=== PATIENT | male | born 1940 | race Caucasian/White ===

== ENCOUNTER → 2018-02-11 11:22 | Outpatient (CLI) | payer MEDICARE, OTHER, SELFPAY ==
[2018-02-11 13:53] LABS: Hematocrit 37.5 % (40-54); Mean Corpuscular Hgb 28.3 pg (27.0-32.0); Mean Corpuscular Volume 88.4 fL (80-94); Mean Platelet Vol. 11.9 fl (6.2-12.0); Platelet Count 166 K/mm3 (150-450); RBC Distribution Width CV 14.1 % (11.6-14.6); RBC Distribution Width SD 45.3 fl (35.1-43.9); Red Blood Count 4.24 M/mm3 (4.6-6.2); White Blood Count 4.9 K/mm3 (4.4-11.0)
[2018-02-11 13:57] LABS: Scan Indicated on CBC? Y/N NO
[2018-02-11 14:16] LABS: AST(SGOT) 25 U/L (15-37); Alanine Aminotransfer ALT/SGPT 27 U/L (16-61); Albumin, Serum 3.4 g/dL (3.2-5.0); Alkaline Phosphatase 89 U/L (45-117); Anion Gap 6 (5-15); BUN 18 mg/dL (7-18); BUN/Creat Ratio 20.3 RATIO (10-20); Calcium,Total 8.9 mg/dL (8.5-10.1); Chloride 104 mmol/L (98-107); Cholesterol 164 mg/dL (200); Creatinine, Serum 0.89 mg/dL (0.70-1.30); EST Glomerular Filtration Rate 89 mL/min (>60); Est Glom Filt Rate - Afr Amer 108 mL/min (>60); Globulin 3.4 g/dL (2.2-4.2); Glucose 94 mg/dL (74-106); High Density Lipoprotein 38 mg/dL; Potassium 4.1 mmol/L (3.5-5.1); Protein, Total 6.8 g/dL (6.4-8.2); Sodium Level 140 mmol/L (136-145); Thyroid Stim Hormone (TSH) 0.36 uIU/mL (0.358-3.74); Triglycerides 99 mg/dL; Very Low Density Lipoprotein 20 mg/dL (5-40)
[2018-02-12 08:43] LABS: Vitamin B12 198 pg/mL (211-911); Vitamin D,25 Hydroxy 32.5 ng/mL (29.95-100.01)
== END ==
PROVIDERS: Family Provider Family Medicine; PCP Family Medicine; Visit Provider Family Medicine
DX: R53.83 Other fatigue (principal); I10 Essential (primary) hypertension; Z12.5 Encounter for screening for malignant neoplasm of prostate
CPT/HCPCS: 36415; 80053; 80061; 82306; 82607; 84443; 85027

== ENCOUNTER → 2018-05-14 11:12 | Outpatient (CLI) | payer MEDICARE, OTHER, SELFPAY ==
[2018-05-14 14:24] LABS: Anion Gap 8 (5-15); BUN 23 mg/dL (7-18); BUN/Creat Ratio 20.4 RATIO (10-20); Calcium,Total 9.1 mg/dL (8.5-10.1); Chloride 104 mmol/L (98-107); Creatinine, Serum 1.13 mg/dL (0.70-1.30); EST Glomerular Filtration Rate 67 mL/min (>60); Est Glom Filt Rate - Afr Amer 81 mL/min (>60); Glucose 95 mg/dL (74-106); Iron 81 ug/dL (65-175); Potassium 4.3 mmol/L (3.5-5.1); Sodium Level 144 mmol/L (136-145)
[2018-05-14 14:33] LABS: Vitamin B12 1037 pg/mL (211-911)
== END ==
PROVIDERS: Family Provider Family Medicine; PCP Family Medicine; Visit Provider Family Medicine
DX: I10 Essential (primary) hypertension (principal); R53.83 Other fatigue; E53.8 Deficiency of other specified B group vitamins; R79.9 Abnormal finding of blood chemistry, unspecified
CPT/HCPCS: 36415; 80048; 82607; 83540

== ENCOUNTER → 2018-08-12 12:17 | Outpatient (CLI) | payer MEDICARE, OTHER, SELFPAY ==
[2018-08-12 14:26] LABS: ALB/GLOB Ratio 0.9 RATIO (0.9-2.4); AST(SGOT) 22 U/L (15-37); Alanine Aminotransfer ALT/SGPT 28 U/L (16-61); Albumin, Serum 3.5 g/dL (3.2-5.0); Alkaline Phosphatase 89 U/L (45-117); Anion Gap 4 (5-15); BUN 13 mg/dL (7-18); BUN/Creat Ratio 12.7 RATIO (10-20); Calcium,Total 8.8 mg/dL (8.5-10.1); Chloride 102 mmol/L (98-107); Creatinine, Serum 1.02 mg/dL (0.70-1.30); EST Glomerular Filtration Rate 76 mL/min (>60); Est Glom Filt Rate - Afr Amer 91 mL/min (>60); Globulin 3.9 g/dL (2.2-4.2); Glucose 84 mg/dL (74-106); PSA,Total - Annual Screen 4.52 ng/mL (0.00-4.00); Potassium 4.3 mmol/L (3.5-5.1); Protein, Total 7.4 g/dL (6.4-8.2); Sodium Level 138 mmol/L (136-145)
[2018-08-13 11:31] LABS: Vitamin B12 > 2000 pg/mL (211-911); Vitamin D,25 Hydroxy 32.5 ng/mL (29.95-100.01)
== END ==
PROVIDERS: Family Provider Family Medicine; PCP Family Medicine; Visit Provider Family Medicine
DX: I10 Essential (primary) hypertension (principal); E55.9 Vitamin D deficiency, unspecified; E53.8 Deficiency of other specified B group vitamins; Z12.5 Encounter for screening for malignant neoplasm of prostate
CPT/HCPCS: 36415; 80053; 82306; 82607; 84153; G0103

== ENCOUNTER → 2018-09-09 15:54 | Outpatient (CLI) | payer MEDICARE, OTHER, SELFPAY ==
--- NOTE | 2018-09-09 15:59 | RAD_ITS ---
STUDY: X-RAY - LUMBAR SPINE REASON FOR EXAM: Male, 77 years old. Neurogenic claudication. TECHNIQUE: 5 view(s) of the lumbar spine were obtained. COMPARISON: Prior comparable comparison studies are not available for review at this time. FINDINGS: Normal lumbar lordosis. There is no substantial scoliosis. There is a normal alignment of the vertebrae. There is multilevel endplate spondylosis of the lumbar vertebrae. There is multi-level degenerative disc disease with multi-level disc space narrowing. There is no demonstrated fracture. There is moderately severe degenerative arthropathy of the facet joints of the lumbar spine. There is atherosclerotic calcification of the abdominal aorta without a demonstrated aneurysm. Multiple pelvic calcifications are probably phleboliths. RAD/L/S Spine Min 4 Views IMPRESSION: Moderately severe multilevel spondylosis, degenerative disc disease and degenerative arthropathy of the lumbar spine. Electronically Signed: Alaina Andrade MD at 23:55 EST , Service support ,
--- NOTE | 2018-09-09 15:59 | RAD_ITS ---
STUDY: X-RAY CHEST REASON FOR EXAM: Male, 77 years old. Dyspnea on effort TECHNIQUE: PA and lateral views of the chest. COMPARISON: 11/06/2017. 02/15/2017 FINDINGS: Stable mild hyperinflation, interstitial prominence, small nodular density posterior left sixth rib There is no demonstrated pleural abnormality. Normal size heart. Normal mediastinum and mary lou. Normal visualized pulmonary arteries. There is atherosclerotic calcification of the aortic arch with tortuosity. There are diffuse degenerative changes of the visualized thoracic spine. There is degenerative osteoarthritis of the bilateral shoulders. There is no demonstrated abnormality of the visualized soft tissue structures of the upper abdomen. RAD/Chest PA and Lateral IMPRESSION: Stable chronic-appearing interstitial lung disease with areas of hyperinflation, small nodular density possible calcification of the posterior sixth rib since 02/15/2017. No pulmonary edema, congestive heart failure or confluent pneumonia. Other nonacute findings as outlined above. Electronically Signed: Unique Frias MD at 7:07 EST , Service support ,
[2018-09-09 17:52] LABS: Hematocrit 39.1 % (40-54); Hemoglobin 12.6 g/dl (13.0-16.5); Mean Corp Hgb Conc 32.2 g/gl (32-36); Mean Corpuscular Hgb 28.3 pg (27.0-32.0); Mean Corpuscular Volume 87.9 fL (80-94); Mean Platelet Vol. 11.6 fl (6.2-12.0); Platelet Count 193 K/mm3 (150-450); RBC Distribution Width SD 44.5 fl (35.1-43.9); Red Blood Count 4.45 M/mm3 (4.6-6.2); White Blood Count 7.7 K/mm3 (4.4-11.0)
[2018-09-09 18:00] LABS: Scan Indicated on CBC? Y/N NO
[2018-09-09 18:23] LABS: AST(SGOT) 21 U/L (15-37); Alanine Aminotransfer ALT/SGPT 29 U/L (16-61); Albumin, Serum 3.6 g/dL (3.2-5.0); Alkaline Phosphatase 85 U/L (45-117); Anion Gap 6 (5-15); BUN 19 mg/dL (7-18); BUN/Creat Ratio 18.3 RATIO (10-20); Calcium,Total 8.9 mg/dL (8.5-10.1); Chloride 105 mmol/L (98-107); Creatinine, Serum 1.04 mg/dL (0.70-1.30); EST Glomerular Filtration Rate 74 mL/min (>60); Est Glom Filt Rate - Afr Amer 89 mL/min (>60); Globulin 3.7 g/dL (2.2-4.2); Glucose 88 mg/dL (74-106); Iron 69 ug/dL (65-175); Potassium 3.8 mmol/L (3.5-5.1); Protein, Total 7.3 g/dL (6.4-8.2); Sodium Level 139 mmol/L (136-145); Thyroid Stim Hormone (TSH) 0.63 uIU/mL (0.358-3.74)
[2018-09-09 18:24] LABS: BNP,B-Type NATRIURETIC PEPTIDE 21.2 pg/mL (0-100)
--- OUTSIDE RECORDS SUMMARY | 2018-11-05 08:54 | XMS RPT_ITS ---
:1940 Author Organization OHIP Care Team Providers Name Role Phone Carlos Pruitt Attending Unavailable Edmond, Carlos Primary Care Unavailable Carlos Pruitt Attending Unavailable Edmond, Christopher Primary Care Unavailable Carlos Pruitt Attending Unavailable Edmond, Christopher Primary Care Unavailable Carlos Pruitt Attending Unavailable Edmond, Christopher Primary Care Unavailable Carlos Pruitt Attending Unavailable Carlos Pruitt Referring Unavailable Edmond, Christopher Primary Care Unavailable Carlos Pruitt Attending Unavailable Carlos Pruitt Referring Unavailable Ranney, Christopher Primary Care Unavailable ALESSIO ARDON Attending Unavailable ALESSIO ARDON Referring Unavailable ALESSIO ARDON Referring Unavailable ALESSIO ARDON Attending Unavailable ALESSIO ARDON Referring Unavailable CARLOS PRUITT B Primary Care Unavailable ALESSIO ARDON Attending Unavailable ALESSIO ARDON Referring Unavailable RANNEY, CHRISTOPHER B Primary Care Unavailable ALESSIO ARDON Attending Unavailable CARLOS PRUITT Referring Unavailable PROBLEMS PROBLEMS DATE TYPE CONDITION / CODE ATTENDING STATUS SOURCE 09/09/2018 Unknown 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, 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, [facility] unspecified / Hospital I73.9(ICD-10) Repository 09/09/2018 Unknown R06.09 - Other Ranney, Active [place] forms of dyspnea / [facility] R06.09(ICD-10) Hospital Repository 09/09/2018 Unknown 786.09 - Other Ranney, Active [place] respiratory [facility] abnormalities / Hospital 786.09(ICD-9) Repository 09/09/2018 Unknown 443.9 - Peripheral Ranney, Active [place] vascular disease, [facility] unspecified / Hospital 443.9(ICD-9) Repository 11/06/2017 Active Obstructive sleep ALESSIO ARDON Active [place] apnea (adult) [facility] Other (pediatric) / [place] G47.33(ICD-10) Repository 11/06/2017 Active Essential (primary) ALESSIO ARDON Active [place] hypertension / [facility] Other I10(ICD-10) [place] Repository 11/06/2017 Admitting Unknown / ALESSIO ARDON Active [facility] UNK(Unknown) [facility] Repository 11/06/2017 Unknown I10 - Essential Ranney, Active [place] (primary) [facility] hypertension / Hospital I10(ICD-10) Repository 11/06/2017 Unknown 401.9 - Unspecified Ranney, Active [place] essential [facility] hypertension / Hospital 401.9(ICD-9) Repository 11/06/2017 Unknown E03.9 - Ranney, Active [place] Hypothyroidism, [facility] unspecified / Hospital E03.9(ICD-10) Repository 11/06/2017 Unknown 244.9 - Unspecified Ranney, Active [place] acquired [facility] hypothyroidism / Hospital 244.9(ICD-9) Repository 11/06/2017 Unknown R06.2 - Wheezing / Ranney, Active [place] R06.2(ICD-10) [facility] Hospital Repository PROCEDURES PROCEDURES No Procedure Records FoundRESULTS RESULTS LOWER EXT ARTERIAL Observed: 09/30/2018 Status: F Source: ADA STUDY 8:22 PM [facility] REPOSITORY [facility] Cardiovascular [address] [address] 09/30/182010 MR#: [id number] Acct: [id number] Name: NED ARMSTRONG Rep #: [id number] : 1940 77 From: Edgar Dykes MD Attending Dr: Carlos Pruitt MD Status: REG CLI Ordering Dr: Date: 09/30/18 Location: [facility] Sex: M C Admitted: Arterial Study - Arterial Study Arterial Study: This is a 77-year-old male with a history of hypertension and hyperlipidemia. The patient complains of fatigue in his lower extremities with ambulation, suspicious for intermittent claudication. He is brought to the noninvasive vascular laboratory at this time for the purpose of bilateral non-invasive lower extremity arterial assessment. Doppler signal assessment was used to evaluate the pulses at ankle level bilaterally. The posterior tibial and dorsalis pedis pulses were triphasic bilaterally. Segmental limb pressures were obtained at ankle level bilaterally. The right ankle pressure, as determined by posterior tibial pulse, was measured at 157 mmHg. The right ankle pressure, as determined by dorsalis pedis pulse, was measured at 147 mmHg. The left ankle pressure, as determined by posterior tibial pulse, was measured at 177 mmHg. The left ankle pressure, as determined by dorsalis pedis pulse, was measured at 156 mmHg. Pulse volume recordings were obtained bilaterally and segmentally. Waveform amplitudes appeared to be satisfactory at all levels bilaterally, including low thigh, calf, ankle, and digital levels. Resting ankle brachial indices were calculated bilaterally. The resting right ankle brachial index was calculated to be 1.13. The resting left ankle brachial index was calculated to be 1.27. The patient was then exercised on a treadmill for 2 minutes and 30 seconds. Exercise was was performed at an incline of 5% and a speed of 2 mph. Ankle pressures were obtained at intervals following cessation of exercise. The right ankle pressure 1 minute following cessation of exercise was measured at 232 mmHg. The left ankle pressure 1 minute following cessation of exercise was measured at 240 mmHg. 3 minutes following cessation of exercise, the right ankle pressure was measured at 193 mmHg, and the left ankle pressure was measured at 206 mmHg. 5 minutes following cessation of exercise, the right ankle pressure was measured at 187 mmHg, and the left ankle pressure was measured at 187 mmHg. Impression: Based upon the findings of this resting and exercise noninvasive lower extremity arterial study, there is no evidence of significant atherosclerotic peripheral arterial occlusive disease in the lower extremities bilaterally. Triphasic waveforms were noted at ankle level bilaterally. Resting ankle brachial indices were bilaterally normal. Following exercise, it is noted that ankle pressures augment bilaterally, which is a normal physiological response. In summary, there is no evidence of significant arterial occlusive disease in the lower extremities bilaterally. 09/30/182021 <Electronically signed by Edgar Dykes MD> Date Edgar Dykes MD CC: Carlos Pruitt MD Date Dictated: 09/30/182010 Date Transcribed: 09/30/182010 Agriculture Instructor: FAIZA Jaimes BNP,B-TYPE NATRIURETIC Collected: 09/09/2018 Status: F Source: ADA PEPTIDE 4:00 PM [facility] REPOSITORY TYPE CODE TESTS RESULT OUT OF RANGE REFERENCE UNITS LAB L503.6620 0-100 pg/mL Normal B-TYPE 21.2 CHRISTIE PEP Performed By: #### L503.6620 #### [facility] [address] [place], [address] CHEST PA AND LATERAL Observed: 09/09/2018 Status: F Source: MARY 3:59 PM [facility] REPOSITORY [facility] Imaging Services [address] [place] [address] Chest PA and Lateral MR#: [id number] Acct: [id number] Name: NED ARMSTRONG Nani Rep #: [id number] : 1940 77 From: Unique Frias MD PCP: Carlos Pruitt MD Status: REG CLI Study: Chest PA and Lateral Date of Exam: 09/09/18 Exam# [id number] Ordering Dr: Alex Pruitt MD STUDY: X-RAY CHEST REASON FOR EXAM: Male, 77 years old. Dyspnea on effort TECHNIQUE: PA and lateral views of the chest. COMPARISON: 11/06/2017. 02/15/2017 FINDINGS: Stable mild hyperinflation, interstitial prominence, small nodular density posterior left sixth rib There is no demonstrated pleural abnormality. Normal size heart. Normal mediastinum and mary lou. Normal visualized pulmonary arteries. There is atherosclerotic calcification of the aortic arch with tortuosity. There are diffuse degenerative changes of the visualized thoracic spine. There is degenerative osteoarthritis of the bilateral shoulders. There is no demonstrated abnormality of the visualized soft tissue structures of the upper abdomen. RAD/Chest PA and Lateral IMPRESSION: Stable chronic-appearing interstitial lung disease with areas of hyperinflation, small nodular density possible calcification of the posterior sixth rib since 02/15/2017. No pulmonary edema, congestive heart failure or confluent pneumonia. Other nonacute findings as outlined above. Electronically Signed: Unique Frias MD at 7:07 EST , Service support , CC: Carlos Pruitt MD Agriculture Instructor: Signed L/S SPINE MIN 4 Observed: 09/09/2018 Status: F Source: ADA VIEWS 3:59 PM [facility] REPOSITORY [facility] Imaging Services [address] [place] [address] L/S Spine Min 4 Views MR#: [id number] Acct: [id number] Name: NED ARMSTRONG Rep #: [id number] : 1940 M 77 From: Alaina Andrade MD PCP: Carlos Pruitt MD Status: REG CLI Study: L/S Spine Min 4 Views Date of Exam: 09/09/18 Exam# [id number] Ordering Dr: Alex Pruitt MD STUDY: X-RAY - LUMBAR SPINE REASON FOR EXAM: Male, 77 years old. Neurogenic claudication. TECHNIQUE: 5 view(s) of the lumbar spine were obtained. COMPARISON: Prior comparable comparison studies are not available for review at this time. FINDINGS: Normal lumbar lordosis. There is no substantial scoliosis. There is a normal alignment of the vertebrae. There is multilevel endplate spondylosis of the lumbar vertebrae. There is multi-level degenerative disc disease with multi-level disc space narrowing. There is no demonstrated fracture. There is moderately severe degenerative arthropathy of the facet joints of the lumbar spine. There is atherosclerotic calcification of the abdominal aorta without a demonstrated aneurysm. Multiple pelvic calcifications are probably phleboliths. RAD/L/S Spine Min 4 Views IMPRESSION: Moderately severe multilevel spondylosis, degenerative disc disease and degenerative arthropathy of the lumbar spine. Electronically Signed: Alaina Andrade MD at 23:55 EST , Service support , CC: Carlos Pruitt MD Agriculture Instructor: Signed CBC-COMPLETE BLOOD CNT Collected: 09/09/2018 Status: F Source: ADA NO DIFF 3:58 PM [facility] REPOSITORY TYPE CODE TESTS RESULT OUT OF RANGE REFERENCE UNITS LAB L100.1000 4.4-11.0 K/mm3 Normal WBC 7.7 LAB L100.1200 4.6-6.2 M/mm3 Low RBC 4.45 LAB L100.1300 13.0-16.5 g/dl Low HGB 12.6 LAB L100.1400 40-54 % Low HCT 39.1 LAB L100.1500 80-94 fL Normal MCV 87.9 LAB L100.1600 27.0-32.0 pg Normal MCH 28.3 LAB L100.1700 32-36 g/gl Normal MCHC 32.2 LAB L100.1810 11.6-14.6 % Normal RDW CV 14.0 LAB L100.1820 35.1-43.9 fl High RDW SD 44.5 LAB L100.1900 150-450 K/mm3 Normal PLT 193 LAB L100.2000 6.2-12.0 fl Normal MPV 11.6 Performed By: #### L100.0500, L500.4050, L501.9520, L503.6150 #### [facility] [address] [place], [address] COMPREHENSIVE METABOLIC Collected: 09/09/2018 Status: F Source: MARY MISTRY 3:58 PM [facility] REPOSITORY TYPE CODE TESTS RESULT OUT OF RANGE REFERENCE UNITS LAB L501.0100 74-106 mg/dL Normal GLU 88 Result Comment: Please note revised GLUCOSE reference range effective 2017. LAB L501.1000 7-18 mg/dL High BUN 19 LAB L501.1100 0.70-1.30 mg/dL Normal CREAT,SERUM 1.04 Result Comment: The validity of the calculated GFR AND GFRAA in patients over 70 years has not been determined. Clinical correlation is essential. LAB L501.1110 >60 mL/min Normal EST GFR 74 Result Comment: Non- GFR Calc LAB L501.1115 >60 mL/min Normal EST GFR - AA 89 Result Comment: GFR Calc LAB L501.1300 10-20 RATIO Normal BUN/CRE 18.3 LAB L501.1500 6.4-8.2 g/dL T Normal PROT 7.3 LAB L501.1800 3.2-5.0 g/dL Normal ALB 3.6 LAB L501.1950 2.2-4.2 g/dL Normal GLOB 3.7 LAB L501.2000 0.9-2.4 RATIO Normal A/G 1.0 LAB L501.2200 8.5-10.1 mg/dL CA Normal 8.9 LAB L501.4100 15-37 U/L Normal AST 21 LAB L501.4305 45-117 U/L Normal ALK P 85 LAB L501.4405 16-61 U/L Normal ALT 29 LAB L501.4600 0.20-1.00 mg/dL T Normal BILI 0.60 LAB L501.5300 136-145 mmol/L NA Normal 139 LAB L501.5600 3.5-5.1 mmol/L K Normal 3.8 LAB L501.5900 98-107 mmol/L CL Normal 105 LAB L501.6100 21.0-32.0 mmol/L Normal CO2 28.0 LAB L501.6200 5-15 Normal GAP 6 Performed By: #### L100.0500, L500.4050, L501.9520, L503.6150 #### [facility] [address] [place], [address] THYROID STIM HORMONE Collected: 09/09/2018 Status: F Source: MARY (TSH) 3:58 PM [facility] REPOSITORY TYPE CODE TESTS RESULT OUT OF RANGE REFERENCE UNITS LAB L501.9520 0.358-3.74 uIU/mL Normal TSH 0.63 Performed By: #### L100.0500, L500.4050, L501.9520, L503.6150 #### [facility] [address] [place], [address] IRON Collected: 09/09/2018 Status: F Source: MARY 3:58 PM [facility] REPOSITORY TYPE CODE TESTS RESULT OUT OF RANGE REFERENCE UNITS LAB L503.6150 65-175 ug/dL Normal IRON 69 Performed By: #### L100.0500, L500.4050, L501.9520, L503.6150 #### [facility] [address] [place], [address] COMPREHENSIVE METABOLIC Collected: 08/12/2018 Status: F Source: MARY PROFIL 12:18 PM [facility] REPOSITORY TYPE CODE TESTS RESULT OUT OF RANGE REFERENCE UNITS LAB L501.0100 74-106 mg/dL Normal GLU 84 Result Comment: Please note revised GLUCOSE reference range effective 2017. LAB L501.1000 7-18 mg/dL Normal BUN 13 LAB L501.1100 0.70-1.30 mg/dL Normal CREAT,SERUM 1.02 Result Comment: The validity of the calculated GFR AND GFRAA in patients over 70 years has not been determined. Clinical correlation is essential. LAB L501.1110 >60 mL/min Normal EST GFR 76 Result Comment: Non- GFR Calc LAB L501.1115 >60 mL/min Normal EST GFR - AA 91 Result Comment: GFR Calc LAB L501.1300 10-20 RATIO Normal BUN/CRE 12.7 LAB L501.1500 6.4-8.2 g/dL T Normal PROT 7.4 LAB L501.1800 3.2-5.0 g/dL Normal ALB 3.5 LAB L501.1950 2.2-4.2 g/dL Normal GLOB 3.9 LAB L501.2000 0.9-2.4 RATIO Normal A/G 0.9 LAB L501.2200 8.5-10.1 mg/dL CA Normal 8.8 LAB L501.4100 15-37 U/L Normal AST 22 LAB L501.4305 45-117 U/L Normal ALK P 89 LAB L501.4405 16-61 U/L Normal ALT 28 LAB L501.4600 0.20-1.00 mg/dL T Normal BILI 0.40 LAB L501.5300 136-145 mmol/L NA Normal 138 LAB L501.5600 3.5-5.1 mmol/L K Normal 4.3 LAB L501.5900 98-107 mmol/L CL Normal 102 LAB L501.6100 21.0-32.0 mmol/L Normal CO2 32.0 LAB L501.6200 5-15 Low GAP 4 Performed By: #### L500.4050, L501.9910, L503.0105, L506.1000 #### [facility] [address] [place], [place], [address] PSA,TOTAL - ANNUAL Collected: 08/12/2018 Status: F Source: ADA SCREEN 12:18 PM [facility] REPOSITORY TYPE CODE TESTS RESULT OUT OF REFERENCE UNITS RANGE LAB L501.9910 0.00-4.00 ng/mL High PSA,TOT 4.52 SCREEN Result Comment: This test was performed using the TPSA assay method for the [employer] chemistry system. Values obtained with different assay methods cannot be used interchangably. When changing PSA assays in the course of monitoring a patient, additional sequential testing should be carried out to confirm baseline values. Performed By: #### L500.4050, L501.9910, L503.0105, L506.1000 #### [facility] [address] [place], [address] VITAMIN B12 Collected: 08/12/2018 Status: F Source: MARY 12:18 PM [facility] REPOSITORY TYPE CODE TESTS RESULT OUT OF REFERENCE UNITS RANGE LAB L503.0105 211-911 pg/mL High Vitamin B12 > 2000 Performed By: #### L500.4050, L501.9910, L503.0105, L506.1000 #### [facility] [address] [place], [address] VITAMIN D,25 HYDROXY Collected: 08/12/2018 Status: F Source: MARY 12:18 PM [facility] REPOSITORY TYPE CODE TESTS RESULT OUT OF RANGE REFERENCE UNITS LAB L506.1000 29.95-100.01 ng/mL Normal Vitamin D 32.5 25-OH Result Comment: Vitamin D 25(OH) Status Range Deficiency <20 ng/mL (50nmol/L) Insuffciency 20 - 30 ng/mL (50 - 75 nmol/L) Sufficiency 30 - 100 ng/mL (75 - 250 nmol/L) Toxicity >100 ng/mL (>250 nmol/L) Performed By: #### L500.4050, L501.9910, L503.0105, L506.1000 #### [facility] [address] [place], [address] BASIC METABOLIC Collected: 05/14/2018 Status: F Source: MARY PROFILE (BMP) 11:14 AM [facility] REPOSITORY Order Comment: Order Date: 05/14/18 Order Info: 0667-1 - BMP Order Info: 2498-4 - FE TYPE CODE TESTS RESULT OUT OF RANGE REFERENCE UNITS LAB L501.0100 74-106 mg/dL Normal GLU 95 Result Comment: Please note revised GLUCOSE reference range effective 2017. LAB L501.1000 7-18 mg/dL High BUN 23 LAB L501.1100 0.70-1.30 mg/dL Normal CREAT,SERUM 1.13 Result Comment: The validity of the calculated GFR AND GFRAA in patients over 70 years has not been determined. Clinical correlation is essential. LAB L501.1110 >60 mL/min Normal EST GFR 67 Result Comment: Non- GFR Calc LAB L501.1115 >60 mL/min Normal EST GFR - AA 81 Result Comment: GFR Calc LAB L501.1300 10-20 RATIO High BUN/CRE 20.4 LAB L501.2200 8.5-10.1 mg/dL CA Normal 9.1 LAB L501.5300 136-145 mmol/L NA Normal 144 LAB L501.5600 3.5-5.1 mmol/L K Normal 4.3 LAB L501.5900 98-107 mmol/L CL Normal 104 LAB L501.6100 21.0-32.0 mmol/L Normal CO2 32.0 LAB L501.6200 5-15 Normal GAP 8 Performed By: #### L500.2500 #### [facility] [address] [place], [address] IRON Collected: 05/14/2018 Status: F Source: MARY 11:14 AM [facility] REPOSITORY Order Comment: Order Date: 05/14/18 Order Info: 0667-1 - BMP Order Info: 2498-4 - FE TYPE CODE TESTS RESULT OUT OF RANGE REFERENCE UNITS LAB L503.6150 65-175 ug/dL Normal IRON 81 Performed By: #### L503.6150, L503.0105 #### [facility] [address] [place], [address] VITAMIN B12 Collected: 05/14/2018 Status: F Source: MARY 11:14 [facility] REPOSITORY Order Comment: Order Date: 05/14/18 Order Info: 2132-9 - B12 TYPE CODE TESTS RESULT OUT OF REFERENCE UNITS RANGE LAB L503.0105 211-911 pg/mL High Vitamin B12 1037 Performed By: #### L503.6150, L503.0105 #### [facility] [address] [place], [address] CBC-COMPLETE BLOOD CNT Collected: 02/11/2018 Status: F Source: MARY NO DIFF 11:23 AM [facility] REPOSITORY Order Comment: Order Date: 02/11/18 Order Info: 51892-6 - CBC TYPE CODE TESTS RESULT OUT OF RANGE REFERENCE UNITS LAB L100.1000 4.4-11.0 K/mm3 Normal WBC 4.9 LAB L100.1200 4.6-6.2 M/mm3 Low RBC 4.24 LAB L100.1300 13.0-16.5 g/dl Low HGB 12.0 LAB L100.1400 40-54 % Low HCT 37.5 LAB L100.1500 80-94 fL Normal MCV 88.4 LAB L100.1600 27.0-32.0 pg Normal MCH 28.3 LAB L100.1700 32-36 g/gl Normal MCHC 32.0 LAB L100.1810 11.6-14.6 % Normal RDW CV 14.1 LAB L100.1820 35.1-43.9 fl High RDW SD 45.3 LAB L100.1900 150-450 K/mm3 Normal PLT 166 LAB L100.2000 6.2-12.0 fl Normal MPV 11.9 Performed By: #### L100.0500, L500.4050, L500.4100, L501.9520, L506.1000 #### [facility] [address] [place], [place], [address] COMPREHENSIVE METABOLIC Collected: 02/11/2018 Status: F [facility] REPOSITORY Order Comment: Order Date: 02/11/18 Order Info: 0786-1 - CMP Order Info: 71730-9 - LIPID Order Info: 3016-3 - TSH TYPE CODE TESTS RESULT OUT OF RANGE REFERENCE UNITS LAB L501.0100 74-106 mg/dL Normal GLU 94 Result Comment: Please note revised GLUCOSE reference range effective 2017. LAB L501.1000 7-18 mg/dL Normal BUN 18 LAB L501.1100 0.70-1.30 mg/dL Normal CREAT,SERUM 0.89 Result Comment: The validity of the calculated GFR AND GFRAA in patients over 70 years has not been determined. Clinical correlation is essential. LAB L501.1110 >60 mL/min Normal EST GFR 89 Result Comment: Non- GFR Calc LAB L501.1115 >60 mL/min Normal EST GFR - AA 108 Result Comment: GFR Calc LAB L501.1300 10-20 RATIO High BUN/CRE 20.3 LAB L501.1500 6.4-8.2 g/dL T Normal PROT 6.8 LAB L501.1800 3.2-5.0 g/dL Normal ALB 3.4 LAB L501.1950 2.2-4.2 g/dL Normal GLOB 3.4 LAB L501.2000 0.9-2.4 RATIO Normal A/G 1.0 LAB L501.2200 8.5-10.1 mg/dL CA Normal 8.9 LAB L501.4100 15-37 U/L Normal AST 25 LAB L501.4305 45-117 U/L Normal ALK P 89 LAB L501.4405 16-61 U/L Normal ALT 27 LAB L501.4600 0.20-1.00 mg/dL T Normal BILI 0.50 LAB L501.5300 136-145 mmol/L NA Normal 140 LAB L501.5600 3.5-5.1 mmol/L K Normal 4.1 LAB L501.5900 98-107 mmol/L CL Normal 104 LAB L501.6100 21.0-32.0 mmol/L Normal CO2 30.0 LAB L501.6200 5-15 Normal GAP 6 Performed By: #### L100.0500, L500.4050, L500.4100, L501.9520, L506.1000 #### [facility] [address] [place], [address] LIPID PROFILE Collected: 02/11/2018 Status: F Source: MARY 11:23 AM [facility] REPOSITORY Order Comment: Order Date: 02/11/18 Order Info: [id number] - CMP Order Info: [id number] - LIPID Order Info: 3016-3 - TSH TYPE CODE TESTS RESULT OUT OF RANGE REFERENCE UNITS LAB L501.4900 200 mg/dL Normal CHOL 164 Result Comment: <200 mg/dL Desirable 200-240 mg/dL Borderline >240 mg/dL High Risk LAB L501.5000 mg/dL Normal TRIG 99 Result Comment: The drugs N-Acetylcysteine and Metamizole may falsely depress this assay. Serum Triglycerides Reference Interval Normal <150 mg/dL Borderline high 150 - 199 mg/dL High 200 - 499 mg/dL Very High > or = 500 mg/dL LAB L501.6400 mg/dL Low HDL 38 Result Comment: The drugs N-Acetylcysteine and Metamizole may falsely depress this assay. Reference Range HDL <40 mg/dL Low HDL Cholesterol HDL >or= 60 mg/dL High HDL Cholesterol LAB L501.6500 0-130 mg/dL Normal LDL 106 LAB L501.6600 5-40 mg/dL Normal VLDL 20 Performed By: #### L100.0500, L500.4050, L500.4100, L501.9520, L506.1000 #### [place] [facility] [address] [place], [address] THYROID STIM HORMONE Collected: 02/11/2018 Status: F Source: MARY (TSH) 11:23 AM [facility] REPOSITORY Order Comment: Order Date: 02/11/18 Order Info: [id number] - CMP Order Info: [id number] - LIPID Order Info: 3016-3 - TSH TYPE CODE TESTS RESULT OUT OF RANGE REFERENCE UNITS LAB L501.9520 0.358-3.74 uIU/mL Normal TSH 0.36 Performed By: #### L100.0500, L500.4050, L500.4100, L501.9520, L506.1000 #### [facility] [address] [place], [address] VITAMIN D,25 HYDROXY Collected: 02/11/2018 Status: F Source: [place] 11:23 AM [facility] REPOSITORY Order Comment: Order Date: 02/11/18 Order Info: 2132-9 - B12 Order Info: 10588-7 - VITD25 TYPE CODE TESTS RESULT OUT OF RANGE REFERENCE UNITS LAB L506.1000 29.95-100.01 ng/mL Normal Vitamin D 32.5 25-OH Result Comment: Vitamin D 25(OH) Status Range Deficiency <20 ng/mL (50nmol/L) Insuffciency 20 - 30 ng/mL (50 - 75 nmol/L) Sufficiency 30 - 100 ng/mL (75 - 250 nmol/L) Toxicity >100 ng/mL (>250 nmol/L) Performed By: #### L100.0500, L500.4050, L500.4100, L501.9520, L506.1000 #### [facility] [address] [place], [address] VITAMIN B12 Collected: 02/11/2018 Status: F Source: [place] 11:23 AM [facility] REPOSITORY Order Comment: Order Date: 02/11/18 Order Info: 2132-9 - B12 Order Info: 01443-3 - VITD25 TYPE CODE TESTS RESULT OUT OF REFERENCE UNITS RANGE LAB L503.0105 211-911 pg/mL Low Vitamin B12 198 Performed By: #### L503.0105 #### [facility] [address] [place], [address] PROGRESS Observed: 11/06/2017 Status: COMPLETED Source: [place] 11:22 AM [facility] REPOSITORY HNO ID: [id number] Author: Alessio Ardon Service: (none) Author Type: Physician Type: Progress Notes Filed: 11/06/2017 5:22 PM Note Text: PERTINENT CARDIAC HISTORY Edema - multifactorial SAMANTHA - not tolerating CPAP Obesity HL HTN ADHERENCE TO GUIDELINES HAFSA-I or ARB for HF with prior LVEF<40 (NQF 0081) - N/A ASA or Plavix for ASHD (NQF 0067) - N/A Beta beverley for ASHD with prior UT or prior LVEF<40 (NQF 0070) - N/A Beta beverley for HF with prior LVEF<40 (NQF 0083) - N/A HAFSA-I or ARB for ASHD with DM or prior LVEF<40 (NQF 0066) - N/A Statin therapy for ASHD or FHL or DM - met BMI documented and plan if >25 (NQF 0421) - lifestyle recommendation form Tobacco use screening and referral (NQF 0028) - lifestyle recommendation form Recommendation for whole food, plant based diet - lifestyle recommendation form CLINICAL IMPRESSION/PLAN: Ned Armstrong has increased shortness of breath and fluid overload, largely due to untreated sleep apnea. I strongly advised him to get a device that works for him. We may need to intensify his diuretic therapy. Echocardiogram will be done to assess the possibility of pulmonary hypertension and right heart dysfunction. This will be carried out in the near future. Previous stress test showed no evidence of ischemia. He is having no angina, but there is no change in systolic function or if he develops exercise induced symptoms, this should be repeated. His exercise intolerance is multifactorial. He needs much better control of his weight. He has severe abdominal obesity. He will be returning to [place] in the near future and we will try to get his medications adjusted before he leaves. Otherwise, I will see him in 6 months. Written and verbal health teaching given to patient, patient verbalizes understanding and agrees with treatment plan. This note was generated using Dragon voice recognition system, and there may be some incorrect words, spellings, and punctuation that were not noted in checking the note before saving. DIAGNOSIS FOR VISIT: Hypertension Sleep apnea HISTORY OF PRESENT ILLNESS Ned Armstrong returns for follow-up of his hypertension and aortic valve disease. He reports that he has not been exercising. He has been trying to stay away from crowds because of fear of requiring influenza. He has noted slightly more exercise intolerance over the last few months and has had increased edema. He has gained about 13 pounds. He denies syncope, palpitations, TIAs, amaurosis and claudication. He's had no chest discomfort. He recently started hydrochlorothiazide. ALLERGIES: ALLERGIES No Known Allergies CURRENT OUTPATIENT MEDICATIONS: amLODIPine (NORVASC) 5 mg tablet Take 1 tablet by mouth once daily. lisinopril 40 mg tablet Take 40 mg by mouth once daily. atorvastatin (LIPITOR) 20 mg tablet Take 20 mg by mouth once daily. Takes in AM hydroCHLOROthiazide (HYDRODIURIL, ESIDRIX) 25 mg tablet Take 1 tablet by mouth every 48 hours. levothyroxine (SYNTHROID) 88 mcg tablet Take 1 tablet by mouth once daily. Cholecalciferol, Vitamin D3, (VITAMIN D-3) 5,000 unit tab Take 5,000 Units by mouth once daily. PHYSICAL EXAMINATION: VITAL SIGNS: BP 136/78 Pulse 68 Ht 5' 8 (1.73m) Chest: Clear to percussion and auscultation. Trachea is midline. Air entry is equal. Cardiac: Regular rhythm. S1 and S2 are normal. PMI is nondisplaced. There are no murmurs, rubs or gallops. Carotids are brisk without bruits. JVP is less than 10 cm. Abdomen: Soft and nontender. Obesity precludes adequate examination. There are no pulsatile masses or bruits. No liver enlargement. Bowel sounds are active. Extremities: 2 plus soft pitting edema. Pulses are intact and symmetrical. Labs were done today in primary care. I confirmed that these include TSH, comprehensive profile, lipids and BNP. We've asked for copies to be sent. Electronically Signed: Alessio Ardon MD November 06, 2017 11:22 AM CC: Carlos Pruitt MD CNOV Observed: 11/06/2017 Status: COMPLETED Source: [place] 11:00 AM CLINIC OTHER CAMPUS REPOSITORY Office Visit (AGCARDWST) NED ARMSTRONG ([id number]) 1940 M [facility] Date Time Provider Department 11/06/17 11:00 AM ALESSIO ARDON AGCARDWST During your visit today, we recorded the following information about you: Pulse Blood pressure Height 68/minute 136/78 1.727 m Alessio Ardon MD 11/06/2017 5:22 PM Signed PERTINENT CARDIAC HISTORY Edema - multifactorial SAMANTHA - not tolerating CPAP Obesity HL HTN ADHERENCE TO GUIDELINES HAFSA-I or ARB for HF with prior LVEFANDlt;40 (NQF 0081) - N/A ASA or Plavix for ASHD (NQF 0067) - N/A Beta beverley for ASHD with prior UT or prior LVEFANDlt;40 (NQF 0070) - N/A Beta beverley for HF with prior LVEFANDlt;40 (NQF 0083) - N/A HAFSA-I or ARB for ASHD with DM or prior LVEFANDlt;40 (NQF 0066) - N/A Statin therapy for ASHD or FHL or DM - met BMI documented and plan if ANDgt;25 (NQF 0421) - lifestyle recommendation form Tobacco use screening and referral (NQF 0028) - lifestyle recommendation form Recommendation for whole food, plant based diet - lifestyle recommendation form CLINICAL IMPRESSION/PLAN: Ned Armstrong has increased shortness of breath and fluid overload, largely due to untreated sleep apnea. I strongly advised him to get a device that works for him. We may need to intensify his diuretic therapy. Echocardiogram will be done to assess the possibility of pulmonary hypertension and right heart dysfunction. This will be carried out in the near future. Previous stress test showed no evidence of ischemia. He is having no angina, but there is no change in systolic function or if he develops exercise induced symptoms, this should be repeated. His exercise intolerance is multifactorial. He needs much better control of his weight. He has severe abdominal obesity. He will be returning to [place] in the near future and we will try to get his medications adjusted before he leaves. Otherwise, I will see him in 6 months. Written and verbal health teaching given to patient, patient verbalizes understanding and agrees with treatment plan. This note was generated using IQzone voice recognition system, and there may be some incorrect words, spellings, and punctuation that were not noted in checking the note before saving. DIAGNOSIS FOR VISIT: Hypertension Sleep apnea HISTORY OF PRESENT ILLNESS Ned Armstrong returns for follow-up of his hypertension and aortic valve disease. He reports that he has not been exercising. He has been trying to stay away from crowds because of fear of requiring influenza. He has noted slightly more exercise intolerance over the last few months and has had increased edema. He has gained about 13 pounds. He denies syncope, palpitations, TIAs, amaurosis and claudication. He's had no chest discomfort. He recently started hydrochlorothiazide. ALLERGIES: ALLERGIES No Known Allergies CURRENT OUTPATIENT MEDICATIONS: amLODIPine (NORVASC) 5 mg tablet Take 1 tablet by mouth once daily. lisinopril 40 mg tablet Take 40 mg by mouth once daily. atorvastatin (LIPITOR) 20 mg tablet Take 20 mg by mouth once daily. Takes in AM hydroCHLOROthiazide (HYDRODIURIL, ESIDRIX) 25 mg tablet Take 1 tablet by mouth every 48 hours. levothyroxine (SYNTHROID) 88 mcg tablet Take 1 tablet by mouth once daily. Cholecalciferol, Vitamin D3, (VITAMIN D-3) 5,000 unit tab Take 5,000 Units by mouth once daily. PHYSICAL EXAMINATION: VITAL SIGNS: BP 136/78 Pulse 68 Ht 5' 8ANDquot; (1.73m) Chest: Clear to percussion and auscultation. Trachea is midline. Air entry is equal. Cardiac: Regular rhythm. S1 and S2 are normal. PMI is nondisplaced. There are no murmurs, rubs or gallops. Carotids are brisk without bruits. JVP is less than 10 cm. Abdomen: Soft and nontender. Obesity precludes adequate examination. There are no pulsatile masses or bruits. No liver enlargement. Bowel sounds are active. Extremities: 2 plus soft pitting edema. Pulses are intact and symmetrical. Labs were done today in primary care. I confirmed that these include TSH, comprehensive profile, lipids and BNP. We've asked for copies to be sent. Electronically Signed: Alessio Ardon MD November 06, 2017 11:22 AM CC: MD Valente Sky, RN, RN 11/07/2017 8:36 AM Signed Copy of OV note mailed to Dr. Pruitt's office. Referring Provider: ALESSIO ARDON [[id number]] Allergies As of Date: 11/06/2017 (No Known Allergies) Date Reviewed: 11/06/2017 Reviewed by: Valente (Rn) LOBO Middleton - Fully Assessed Reason for Visit: Follow Up [171] Cmt: 8 month Primary Visit Diagnosis:SAMANTHA (obstructive sleep apnea) [G47.33] Other Visit Diagnosis:Hypertension, essential [I10] Order(s):hydroCHLOROthiazide (HYDRODIURIL, ESIDRIX) 25 mg tabletTake 1 tablet by mouth every 48 hours.Disp: Rfl: levothyroxine (SYNTHROID) 88 mcg tabletTake 1 tablet by mouth once daily.Disp: Rfl: ECHO [[id number]] Order #: [id number]: 1 FUTURE Prescriptions as of 11/06/2017 Sig: AMLODIPINE 5 MG TABLET Take 1 tablet by mouth once d* LISINOPRIL 40 MG TABLET Take 40 mg by mouth once eloisa* ATORVASTATIN 20 MG TABLET Take 20 mg by mouth once eloisa* HYDROCHLOROTHIAZIDE 25 MG TAB* Take 1 tablet by mouth every * LEVOTHYROXINE 88 MCG TABLET Take 1 tablet by mouth once d* CHOLECALCIFEROL (VITAMIN D3) * Take 5,000 Units by mouth onc* Problem List As Of Date 11/06/2017 Noted Resolved OLECRANON BURSITIS [M70.20] INVALID FOR* SKIN DISORDER NOS [L98.9] INVALID FOR* SKIN CARCINOMA FACE, SKIN OF [173.3] INVALID FOR* ACTINIC KERATOSES (Premalignant AK's) [L57.0] INVALID FOR* ACTINIC DAMAGE///CHR SOLAR SKIN DAMAGE NOS [L57*INVALID FOR*05/11/2014 Unspecified hypertrophic and atrophic condition*INVALID FOR*05/11/2014 SOLAR LENTIGINES///DYSCHROMIA OTHER [L81.9] INVALID FOR*05/11/2014 Irritated Seborrheic Keratoses [L82.0] INVALID FOR* Seborrheic Keratoses [L82.1] INVALID FOR* NEVUS BACK///BENIGN ASHLEY SKIN TRUNK [D23.5] INVALID FOR*05/11/2014 Scar condition and fibrosis of skin [L90.5] INVALID FOR*05/11/2014 H/O SCC'S///PERS HX SKIN MALIGNANCY NEC [Z85.82*INVALID FOR* Neoplasm of uncertain behavior of skin [D48.5] INVALID FOR*05/11/2014 UMBILICAL HERNIA [K42.9] INVALID FOR* VIRAL WARTS NOS [B07.9] INVALID FOR* Digital mucous cyst [M67.449] INVALID FOR* 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 Visit Notes: >> Valente (Lobo) LOBO Middleton Jewels Nov 07, 2017 8:36 AM Status: Signed Copy of OV note mailed to Dr. Pruitt's office. Prescriptions ordered this encounter Disp Refills Start End HYDROCHLOROTHIAZIDE 25 MG TABLET 11/06/2017 Class: Med Update Route: ORAL Sig: Take 1 tablet by mouth every 48 hours. LEVOTHYROXINE 100 MCG TABLET 11/06/2017 11/06/2017 Class: Med Update Route: ORAL Sig: Take 1 tablet by mouth daily before breakfast. LEVOTHYROXINE 88 MCG TABLET 11/06/2017 Class: Med Update Route: ORAL Sig: Take 1 tablet by mouth once daily. Medications Discontinued During This Encounter levothyroxine (SYNTHROID) 100 mcg ta* 0 09/09/2012 11/06/2017 Class: Med Update Route: ORAL Sig: Take 1 tablet by mouth daily before breakfast. Patient taking differently: Take 88 mcg by mouth daily before breakfast. Disc: Reason for discontinue is not on file. Cosign accepted by HARITHA RIOS, KAE Gilbert[[id number]] on 09/09/2012 11:41 AM levothyroxine (SYNTHROID) 100 mcg ta* 11/06/2017 11/06/2017 Class: Med Update Route: ORAL Sig: Take 1 tablet by mouth daily before breakfast. Disc: Reason for discontinue is not on file. Classic SmartForms filed during this visit: Extended Vitals Encounter Status:Closed by ALESSIO ARDON MD on 11/06/17 CHEST PA AND LATERAL Observed: 11/06/2017 Status: F Source: ADA 10:21 AM [facility] REPOSITORY [facility] Imaging Services [address] [place] [address] Chest PA and Lateral MR#: [id number] Acct: [id number] Name: NED ARMSTRONG Rep #: [id number] : 1940 77 From: Dutch Biggs MD PCP: Carlos Pruitt MD Status: REG CLI Study: Chest PA and Lateral Date of Exam: 11/06/17 Exam# [id number] Ordering Dr: Alex Pruitt MD STUDY: X-RAY CHEST REASON FOR EXAM: Male, 77 years old. Wheezing. TECHNIQUE: PA and lateral views of the chest. COMPARISON: Comparison is made with prior study dated February 15, 2017. FINDINGS: Hyperinflation. Stable increased interstitial markings at both lung bases slightly worse on the left side suggestive of bibasilar scarring. There is no demonstrated pleural abnormality. There is borderline cardiomegaly. Normal mediastinum and mary lou. Normal visualized pulmonary arteries. There is atherosclerotic calcification of the aortic arch with tortuosity. There are diffuse degenerative changes of the visualized thoracic spine. There is degenerative osteoarthritis of the bilateral shoulders. There is no demonstrated abnormality of the visualized soft tissue structures of the upper abdomen. RAD/Chest PA and Lateral IMPRESSION: Stable increased interstitial markings at the lung bases suggestive of scarring. Electronically Signed: Dutch Biggs MD at 15:20 EST Tel [phone], Service support , CC: Carlos Pruitt MD Agriculture Instructor: Signed BNP,B-TYPE NATRIURETIC Collected: 11/06/2017 Status: F Source: MARY PEPTIDE 10:18 AM [facility] REPOSITORY TYPE CODE TESTS RESULT OUT OF RANGE REFERENCE UNITS LAB L503.6620 0-100 pg/mL Normal B-TYPE 19.9 CHRISTIE PEP Performed By: #### L503.6620 #### [facility] [address] [place], [address] COMPREHENSIVE METABOLIC Collected: 11/06/2017 Status: F Source: MARY PROFIL 10:16 AM [facility] REPOSITORY Order Comment: Order Date: 11/06/17 Order Info: [id number] - CMP Order Info: [id number] - LIPID Order Info: [id number] - TSH TYPE CODE TESTS RESULT OUT OF RANGE REFERENCE UNITS LAB L501.0100 70-110 mg/dL Normal GLU 98 LAB L501.1000 7-18 mg/dL Normal BUN 11 LAB L501.1100 0.70-1.30 mg/dL Normal 0.83 CREAT,SERUM Result Comment: The validity of the calculated GFR AND GFRAA in patients over 70 years has not been determined. Clinical correlation is essential. LAB L501.1110 >60 mL/min Normal EST GFR 96 Result Comment: Non- GFR Calc LAB L501.1115 >60 mL/min Normal EST GFR - AA 116 Result Comment: GFR Calc LAB L501.1300 10-20 RATIO Normal BUN/CRE 13.3 LAB L501.1500 6.4-8.2 g/dL T Normal PROT 7.0 LAB L501.1800 3.4-5.0 g/dL Normal ALB 3.6 Result Comment: Please note revised Albumin AND Globulin reference range effective 2017. LAB L501.1950 2.2-4.2 g/dL Normal GLOB 3.4 LAB L501.2000 0.9-2.4 RATIO Normal A/G 1.1 LAB L501.2200 8.5-10.1 mg/dL Normal CA 8.8 LAB L501.4100 15-37 U/L Normal AST 17 LAB L501.4305 45-117 U/L Normal ALK P 95 LAB L501.4405 12-78 U/L Normal ALT 27 LAB L501.4600 0.20-1.00 mg/dL Normal T BILI 0.50 LAB L501.5300 136-145 mmol/L Normal NA 139 LAB L501.5600 3.5-5.1 mmol/L Normal K 4.5 LAB L501.5900 98-107 mmol/L Normal CL 103 LAB L501.6100 21.0-32.0 mmol/L Normal CO2 29.0 LAB L501.6200 5-15 Normal GAP 7 Performed By: #### L500.4050, L500.4100, L501.9520 #### [facility] [address] [place], [place], [address] LIPID PROFILE Collected: 11/06/2017 Status: F Source: MARY 10:16 AM [facility] REPOSITORY Order Comment: Order Date: 11/06/17 Order Info: [id number] - CMP Order Info: [id number] - LIPID Order Info: 3016-3 - TSH TYPE CODE TESTS RESULT OUT OF RANGE REFERENCE UNITS LAB L501.4900 200 mg/dL Normal CHOL 179 Result Comment: <200 mg/dL Desirable 200-240 mg/dL Borderline >240 mg/dL High Risk LAB L501.5000 mg/dL Normal TRIG 103 Result Comment: The drugs N-Acetylcysteine and Metamizole may falsely depress this assay. Serum Triglycerides Reference Interval Normal <150 mg/dL Borderline high 150 - 199 mg/dL High 200 - 499 mg/dL Very High > or = 500 mg/dL LAB L501.6400 mg/dL Normal HDL 42 Result Comment: The drugs N-Acetylcysteine and Metamizole may falsely depress this assay. Reference Range HDL <40 mg/dL Low HDL Cholesterol HDL >or= 60 mg/dL High HDL Cholesterol LAB L501.6500 0-130 mg/dL Normal LDL 116 LAB L501.6600 5-40 mg/dL Normal VLDL 21 Performed By: #### L500.4050, L500.4100, L501.9520 #### [facility] [address] [place] [place], [address] THYROID STIM HORMONE Collected: 11/06/2017 Status: F Source: MARY (TSH) 10:16 AM [facility] REPOSITORY Order Comment: Order Date: 11/06/17 Order Info: [id number] - CMP Order Info: [id number] - LIPID Order Info: 3016-3 - TSH TYPE CODE TESTS RESULT OUT OF RANGE REFERENCE UNITS LAB L501.9520 0.358-3.74 uIU/mL Normal TSH 0.44 Performed By: #### L500.4050, L500.4100, L501.9520 #### [facility] [address] [place], [address] ALLERGIES ALLERGIES DATE TYPE / CODE NAME / CODE REACTION SEVERITY SOURCE NG/[id number] NO KNOWN [facility] 6([employer] ALLERGIES [facility]) Repository Drug NO KNOWN [facility] Class/26760 ALLERGIES Other [place] 1003(SNOMED Repository CT) ENCOUNTERS ENCOUNTERS ADMIT/DISCHARGE ACCOUNT NUMBER ADMITTING ENCOUNTER LOCATION SOURCE CLASS 09/22/2018 [id number] Ambulatory [facility] ding:[facility]S Repository 09/09/2018 [id number] [facility] ding:MTLAB Repository 08/12/2018 [id number] [facility] ding:MFPLAB Repository 05/14/2018 [id number] [facility] ding:MFPLAB Repository 04/23/2018 [id number] Ambulatory [facility] MEDICAL Repository CENTERBuildi ng:CAGWS 02/11/2018 [id number] [facility] ding:MFPLAB Repository 11/06/2017/11/11/19 [id number] Ambulatory [address] Main [place] Repository 11/06/2017/11/06/19 [id number] Ambulatory [address] Other [place] Repository 11/06/2017/11/06/19 [id number] Ambulatory [address] MEDICAL Repository CENTERBuildi ng:CAGWS 11/06/2017 [id number] Ambulatory [place] [facility] ding:MTLAB Repository 11/01/2017 [id number] Ambulatory [facility] MEDICAL Repository CENTERBuildi ng:CAGWS PAYERS PAYERS ENCOUNTER GUARANTOR PAYER SUBSCRIBER SOURCE 09/22/2018 NED ARMSTRONG Primary NED Hernandez Jr.3331 Insurance:MEDICARE BAUERLE Jr.: [facility] [id number] Number: Repository [id number]: 330 [id number] [phone] () Date:2018-09-16 09/22/2018 Secondary NED L Mary Insurance:HUMANA BAUERLE Jr.: [facility] [id number] Hospital Number: Repository [id number] Date:3280-01-09QD[address] [address]JZ: 09/22/2018 Tertiary NOT GIVENUNK Mary Insurance:SELF PAY [facility] Number: Effective Repository Date:2018-09-16 09/09/2018 Ned Armstrong Primary Ned Hernandez Jr.3331 Insurance:MEDICARE Bauerle Jr.: [facility] [id number] Number[place] Repository [id number]: 330 [id number] [phone] () Date:2018-09-09 09/09/2018 Secondary Ned Nani Mary Insurance:HUMANA Bauerle Jr.: [facility] [id number] Hospital Number: Repository [id number] Date:8740-95-68KU[address] [address]MG: 09/09/2018 Tertiary NOT GIVENUNK Mary Insurance:SELF PAY [facility] Number: Effective Repository Date:2018-09-09 08/12/2018 Ned Armstrong Primary Ned Hernandez Jr.3331 Insurance:MEDICARE Bauerle Jr.: [facility] [id number] Number: Repository [id number]: 330 [id number] [phone] () Date:2018-08-12 08/12/2018 Secondary Ned L Mary Insurance:HUMANA Bauerle Jr.: [facility] [id number] Hospital Number: Repository [id number] Date:[id number] [address]YD: 08/12/2018 Tertiary NOT GIVENUNK [place] Insurance:SELF PAY [facility] Number: Effective Repository Date:2018-08-12 05/14/2018 Ned Armstrong Primary Ned Hernandez Jr.3331 Insurance:MEDICARE Bauerle Jr.: [facility] [id number] Number: Repository [id number]: 330 [id number] [phone] () Date:2018-05-14 05/14/2018 Secondary Ned Nani Mary Insurance:HUMANA Bauerle Jr.: [facility] [id number] Hospital Number: Repository [id number] Date:[id number] [address]QO: 05/14/2018 Tertiary NOT GIVENUNK [place] Insurance:SELF PAY [facility] Number: Effective Repository Date:2018-05-14 04/23/2018 NDE L Primary NED [facility] [place]: Insurance:MEDICARE A BENJIE: Health System [id number] AND [facility] Number: [id number] [id number] [place], [place] Date: [address]Gwf: () 04/23/2018 Secondary NED Luciano General Insurance:HUMANA BAEROSLEDOB: Health System MEDICARE [id number] Repository SUPPLEMENTPolicy Number: [id number] Date: 02/11/2018 Ned Armstrong Primary Ned Hernandez Jr.3331 Insurance:MEDICARE Bauerle Jr.: [facility] [id number] Repository [address]Lit: [phone] [id number] [phone] (HP) Date:2018-02-11 02/11/2018 Secondary Ned Hernandez Insurance:HUMANA Bauerle Jr.: [facility] [id number] Hospital Number: Repository [id number] Date:6944-05-27QN[address] [address]WL: 02/11/2018 Tertiary NOT GIVENUNK [place] Insurance:SELF PAY [facility] Number: Effective Repository Date:2018-02-11 11/06/2017 NED Cardoza Primary NED Luciano General BENJIEOB: Insurance:MEDICARE A TRAMAINELEDOB: [facility] AND olicy Number: [id number] [facility] [id number] [place], [place] Date: [address]Wth: () 11/06/2017 Secondary NED Luciano General Insurance:HUMANA BAEROSLEDOB: [facility] MEDICARE [id number] Repository SUPPLEMENTPolicy Number: [id number] Date: 11/06/2017 Ned Armstrong Primary Ned Hernandez Jr.3331 Insurance:MEDICARE Bauerle Jr.: [facility] [id number] Number[place] Repository [id number]: [phone] [id number] [phone] (HP) Date:2017-11-06 11/06/2017 Secondary Ned Hernandez Insurance:HUMANA Bauerle Jr.: Community COMMERCIALPolicy [id number] Hospital Number: Repository [id number] Date:[id number] [place] [address]GI: 11/06/2017 Tertiary NOT GIVENUNK [place] Insurance:SELF PAY [facility] Number: Effective Repository Date:2017-11-06 11/01/2017 NED Cardoza Primary NED WALDROPOB: Insurance:MEDICARE [place] PAZ: Health System [id number] AND BPolicy Number: [id number] Repository [place] [id number] [place], [place] Date: [address]Plc: () 11/01/2017 Secondary NED Barrera Insurance:NAZANIN PAZ: Health System MEDICARE [id number] Repository SUPPLEMENTPolicy Number: [id number] Date:
== END ==
PROVIDERS: Family Provider Family Medicine; PCP Family Medicine; Referring Provider Family Medicine; Visit Provider Family Medicine
DX: I73.9 Peripheral vascular disease, unspecified (principal); R06.09 Other forms of dyspnea
CPT/HCPCS: 36415; 71046; 72110; 80053; 83540; 83880; 84443; 85027

== ENCOUNTER → 2018-09-22 14:05 | Outpatient (CLI) | payer MEDICARE, OTHER, SELFPAY ==
--- NOTE | 2018-09-30 20:11 | LEAS ---
Arterial Study - Arterial Study Arterial Study: This is a 77-year-old male with a history of hypertension and hyperlipidemia. The patient complains of fatigue in his lower extremities with ambulation, suspicious for intermittent claudication. He is brought to the noninvasive vascular laboratory at this time for the purpose of bilateral non-invasive lower extremity arterial assessment. Doppler signal assessment was used to evaluate the pulses at ankle level bilaterally. The posterior tibial and dorsalis pedis pulses were triphasic bilaterally. Segmental limb pressures were obtained at ankle level bilaterally. The right ankle pressure, as determined by posterior tibial pulse, was measured at 157 mmHg. The right ankle pressure, as determined by dorsalis pedis pulse, was measured at 147 mmHg. The left ankle pressure, as determined by posterior tibial pulse, was measured at 177 mmHg. The left ankle pressure, as determined by dorsalis pedis pulse, was measured at 156 mmHg. Pulse?volume recordings were obtained bilaterally and segmentally. Waveform amplitudes appeared to be satisfactory at all levels bilaterally, including low thigh, calf, ankle, and digital levels. Resting ankle?brachial indices were calculated bilaterally. The resting right ankle?brachial index was calculated to be 1.13. The resting left ankle?brachial index was calculated to be 1.27. The patient was then exercised on a treadmill for 2 minutes and 30 seconds. Exercise was was performed at an incline of 5% and a speed of 2 mph. Ankle pressures were obtained at intervals following cessation of exercise. The right ankle pressure 1 minute following cessation of exercise was measured at 232 mmHg. The left ankle pressure 1 minute following cessation of exercise was measured at 240 mmHg. 3 minutes following cessation of exercise, the right ankle pressure was measured at 193 mmHg, and the left ankle pressure was measured at 206 mmHg. 5 minutes following cessation of exercise, the right ankle pressure was measured at 187 mmHg, and the left ankle pressure was measured at 187 mmHg. Impression: Based upon the findings of this resting and exercise noninvasive lower extremity arterial study, there is no evidence of significant atherosclerotic peripheral arterial occlusive disease in the lower extremities bilaterally. Triphasic waveforms were noted at ankle level bilaterally. Resting ankle?brachial indices were bilaterally normal. Following exercise, it is noted that ankle pressures augment bilaterally, which is a normal physiological response. In summary, there is no evidence of significant arterial occlusive disease in the lower extremities bilaterally.
== END ==
PROVIDERS: Family Provider Family Medicine; PCP Family Medicine; Referring Provider Family Medicine; Visit Provider Family Medicine
DX: I73.9 Peripheral vascular disease, unspecified (principal)
CPT/HCPCS: 93924

== ENCOUNTER → 2018-12-03 14:17 | Outpatient (CLI) | payer MEDICARE, OTHER, SELFPAY ==
[2018-12-03 16:03] LABS: Anion Gap 9 (5-15); BUN 12 mg/dL (7-18); BUN/Creat Ratio 11.1 RATIO (10-20); Calcium,Total 8.5 mg/dL (8.5-10.1); Chloride 105 mmol/L (98-107); Creatinine, Serum 1.08 mg/dL (0.70-1.30); EST Glomerular Filtration Rate 71 mL/min (>60); Est Glom Filt Rate - Afr Amer 86 mL/min (>60); Glucose 92 mg/dL (74-106); Potassium 3.8 mmol/L (3.5-5.1); Sodium Level 143 mmol/L (136-145); Thyroid Stim Hormone (TSH) 0.28 uIU/mL (0.358-3.74)
[2018-12-03 16:09] LABS: Vitamin B12 537 pg/mL (211-911); Vitamin D,25 Hydroxy 25.7 ng/mL (29.95-100.01)
[2018-12-03 16:16] LABS: Hematocrit 35.9 % (40-54); Hemoglobin 11.9 g/dl (13.0-16.5); Mean Corp Hgb Conc 33.1 g/gl (32-36); Mean Corpuscular Hgb 29.9 pg (27.0-32.0); Mean Corpuscular Volume 90.2 fL (80-94); Mean Platelet Vol. 11.8 fl (6.2-12.0); Platelet Count 171 K/mm3 (150-450); RBC Distribution Width CV 13.8 % (11.6-14.6); RBC Distribution Width SD 44.7 fl (35.1-43.9); Red Blood Count 3.98 M/mm3 (4.6-6.2); White Blood Count 5.8 K/mm3 (4.4-11.0)
[2018-12-03 16:21] LABS: Scan Indicated on CBC? Y/N NO
[2018-12-05 12:18] LABS: PSA, Free 1.13 ng/mL; PSA, Free % 23.1 % (.); PSA, Total Ultrasensitive 4.9 ng/mL (0.0-4.0)
== END ==
PROVIDERS: Family Provider Family Medicine; PCP Family Medicine; Visit Provider Family Medicine
DX: R53.83 Other fatigue (principal); R97.20 Elevated prostate specific antigen [PSA]
CPT/HCPCS: 36415; 80048; 82306; 82607; 84153; 84154; 84443; 85027

== ENCOUNTER → 2018-12-08 10:55 | Outpatient (CLI) | payer MEDICARE, OTHER, SELFPAY ==
--- NOTE | 2018-12-08 11:02 | ECHOCS_ITS ---
Reason For Study: Dyspnea Procedure This was a 2D Doppler, Color Flow transthoracic echocardiogram. Contrast injection was performed. Exam performed in department. Left Ventricle Normal LV size. Moderate concentric left ventricular hypertrophy. Left ventricular systolic function is normal. The estimated ejection fraction is 65 %. Stage 1 diastolic dysfunction. No regional wall motion abnormalities noted. Right Ventricle Normal RV size. Normal systolic function. Atria Normal left atrium. Normal right atrium. Mitral Valve Normal mitral valve. Tricuspid Valve Normal tricuspid valve. Aortic Valve The aortic valve is not well visualized. Mean aortic valve gradient 8 mmHg. Mild aortic stenosis. Pulmonic Valve The pulmonic valve is not well visualized. Great Vessels Normal aortic root. The pulmonary is not well visualized. Normal inferior vena cava. Pericardium/Pleural No pericardial effusion. Medication 22 gauge I.V. with prn adaptor inserted into right arm. Diluted definity 4ml given slow IV push to enhance endocardial definition. MMode/2D Measurements & Calculations LVIDd: 4.2 cm IVSd: 1.5 cm LVOT diam: 2.0 cm LVIDs: 2.2 cm LVPWd: 1.3 cm FS: 48.3 % LVOT area: 3.0 cm2 Ao root diam: 3.6 cm LAV(MOD-bp): 98.4 ml LA A4 area: 26.5 cm2 LAV(MOD-bp) Indexed: 43.0 ml/m2 LAV(MOD-sp2): 104.1 ml LAV(MOD-sp4): 90.3 ml RA A4 area: 23.1 cm2 Time Measurements MV dec time: 0.25 sec Doppler Measurements & Calculations MV E max magdy: 74.8 cm/sec Lat Peak E' Magdy: 5.6 cm/sec Med Peak E' Magdy: 5.9 cm/sec MV A max magdy: 77.8 cm/sec E/E' lat: 13.5 E/E' med: 12.6 MV E/A: 0.96 MV V2 max: 99.2 cm/sec MV P1/2t max magdy: 90.5 cm/sec Ao V2 max: 253.2 cm/sec MV max P.9 mmHg MV P1/2t: 79.2 msec Ao max P.7 mmHg MV V2 mean: 57.6 cm/sec MV dec slope: 335.0 cm/sec2 Ao V2 mean: 128.3 cm/sec MV mean P.5 mmHg Ao mean P.7 mmHg MV V2 VTI: 30.8 cm MVA(P1/2t): 2.8 cm2 Ao V2 VTI: 52.5 cm MATTY(V,D): 1.5 cm2 LV V1 max: 125.2 cm/sec PA V2 max: 96.8 cm/sec LV V1 max P.3 mmHg Interpretation Summary Normal LV size. Moderate concentric left ventricular hypertrophy. Left ventricular systolic function is normal. The estimated ejection fraction is 65 %. Stage 1 diastolic dysfunction. Mild aortic stenosis. Contrast injection was performed. Ordering Physician: Martin Pruitt Referring Physician: Martin Pruitt Performed By: Keagan Gómez RCS
== END ==
PROVIDERS: Family Provider Family Medicine; PCP Family Medicine; Referring Provider Family Medicine; Visit Provider Family Medicine
DX: R06.09 Other forms of dyspnea (principal)
CPT/HCPCS: 93306; Q9957; A4216; C8929

== ENCOUNTER → 2019-03-05 16:08 | Outpatient (CLI) | payer MEDICARE, OTHER, SELFPAY ==
[2019-03-05 18:33] LABS: Vitamin D,25 Hydroxy 36.2 ng/mL (29.95-100.01)
[2019-03-05 18:42] LABS: AST(SGOT) 18 U/L (15-37); Alanine Aminotransfer ALT/SGPT 27 U/L (16-61); Albumin, Serum 3.4 g/dL (3.2-5.0); Alkaline Phosphatase 98 U/L (45-117); Anion Gap 7 (5-15); BUN 21 mg/dL (7-18); Calcium,Total 9.1 mg/dL (8.5-10.1); Chloride 106 mmol/L (98-107); Creatinine, Serum 1.05 mg/dL (0.70-1.30); EST Glomerular Filtration Rate 73 mL/min (>60); Est Glom Filt Rate - Afr Amer 88 mL/min (>60); Globulin 3.4 g/dL (2.2-4.2); Glucose 87 mg/dL (74-106); Protein, Total 6.8 g/dL (6.4-8.2); Sodium Level 143 mmol/L (136-145); T4 Free Direct 0.79 ng/dL (0.76-1.46); Thyroid Stim Hormone (TSH) 1.24 uIU/mL (0.358-3.74)
== END ==
PROVIDERS: Family Provider Family Medicine; PCP Family Medicine; Referring Provider Family Medicine; Visit Provider Family Medicine
DX: E55.9 Vitamin D deficiency, unspecified (principal); E03.9 Hypothyroidism, unspecified; I10 Essential (primary) hypertension
CPT/HCPCS: 36415; 80053; 82306; 84439; 84443

== ENCOUNTER → 2019-03-30 10:05 | Outpatient (CLI) | payer MEDICARE, OTHER, SELFPAY | PROVIDERS: Family Provider Family Medicine; PCP Family Medicine; Referring Provider Family Medicine; Visit Provider Dermatology | DX: L30.9 Dermatitis, unspecified (principal); L57.0 Actinic keratosis; Z08 Encounter for follow-up examination after completed treatment for malignant neoplasm; Z85.820 Personal history of malignant melanoma of skin; L82.0 Inflamed seborrheic keratosis; L53.8 Other specified erythematous conditions; L29.8 Other pruritus; D22.5 Melanocytic nevi of trunk; L21.8 Other seborrheic dermatitis; L57.8 Other skin changes due to chronic exposure to nonionizing radiation | CPT/HCPCS: 36415 ==

== ENCOUNTER → 2019-04-06 10:14 | Outpatient (CLI) | payer MEDICARE, OTHER, SELFPAY ==
[2019-04-06 12:40] LABS: Hematocrit 38.4 % (40-54); Hemoglobin 12.2 g/dl (13.0-16.5); Mean Corp Hgb Conc 31.8 g/gl (32-36); Mean Corpuscular Volume 88.3 fL (80-94); Mean Platelet Vol. 11.6 fl (6.2-12.0); Platelet Count 166 K/mm3 (150-450); RBC Distribution Width CV 13.8 % (11.6-14.6); RBC Distribution Width SD 44.1 fl (35.1-43.9); Red Blood Count 4.35 M/mm3 (4.6-6.2)
[2019-04-06 12:43] LABS: Ferritin 111 ng/mL (26-388); Iron 71 ug/dL (65-175); Thyroid Stim Hormone (TSH) 1.03 uIU/mL (0.358-3.74)
[2019-04-06 12:44] LABS: Vitamin B12 297 pg/mL (211-911)
[2019-04-06 12:48] LABS: Scan Indicated on CBC? Y/N NO
== END ==
PROVIDERS: Family Provider Family Medicine; PCP Family Medicine; Visit Provider Family Medicine
DX: E53.8 Deficiency of other specified B group vitamins (principal); D64.9 Anemia, unspecified
CPT/HCPCS: 36415; 82607; 82728; 83540; 84443; 85027

== ENCOUNTER → 2019-05-11 07:13 | Outpatient (CLI) | payer MEDICARE, OTHER, SELFPAY | PROVIDERS: Family Provider Family Medicine; PCP Family Medicine; Referring Provider Family Medicine; Visit Provider Family Medicine | DX: R06.09 Other forms of dyspnea (principal) ==

== ENCOUNTER → 2019-05-19 09:41 | Outpatient (CLI) | payer MEDICARE, OTHER, SELFPAY ==
--- NOTE | 2019-05-19 09:47 | STEWCON_ITS ---
Reason For Study: DYSPNEA ON EFFORT Stress Results Protocol: Dobutamine with definity Maximum Predicted HR: 144 bpm Target HR: 122 bpm % Maximum Predicted HR: 88 % DurationHeart Rate Stage (mm:ss) (bpm) BP Dose Comment BASELINE 72 145/84 2 ML DEFINITY STAGE 1 3:00 84 149/7410.002 ML DEFINITY STAGE 2 3:00 127 164/8720.001 ML DEFINITY, SOB RECOVERY 86 148/83 1 ML DEFINITY Stress Duration: 6:00 mm:ss Maximum Stress HR: 127 bpm Baseline Echocardiogram Findings Stress Echo Wall motion Data Resting WM Intermediate WM Stress WM Resting Wall Motion Wall Motion Int. Wall Motion Stress Ejection Fraction 60 %. All segments Hyperkinetic. All segments Hyperkinetic. All segments Normal. Ejection Fraction 70 %. Ejection Fraction 80 %. Stress Results Arrhythmias: Rare PVC during recovery Stopped: Secondary to target heart rate achieved. EKG Data Baseline ECG: NSR; POOR R WAVE PROGRESSION. Peak pharmacologic ECG: NO OBVIOUS ECG CHANGES. Symptoms with Stress No complaint of symptoms compatible with angina pectoris during pharmacologic infusion or recovery. Interpretation Summary The study was technically difficult Contrast injection was performed NEGATIVE (ADEQUATE) DOBUTAMINE STRESS ECHOCARDIOGRAM Ordering Physician: Alex Pruitt Referring Physician: Alex Pruitt Performed By: Yesica Valles, BECKI, RVT
== END ==
PROVIDERS: Family Provider Family Medicine; PCP Family Medicine; Referring Provider Family Medicine; Visit Provider Family Medicine
DX: R06.09 Other forms of dyspnea (principal)
CPT/HCPCS: 93017; 93350; J7040; Q9957; A4216; C8928

== ENCOUNTER → 2019-08-26 12:20 | Outpatient (CLI) | payer MEDICARE, OTHER, SELFPAY ==
[2019-08-26 14:32] LABS: AST(SGOT) 21 U/L (15-37); Alanine Aminotransfer ALT/SGPT 32 U/L (16-61); Albumin, Serum 3.4 g/dL (3.2-5.0); Alkaline Phosphatase 89 U/L (45-117); Anion Gap 5 (5-15); BUN 16 mg/dL (7-18); BUN/Creat Ratio 17.4 RATIO (10-20); Calcium,Total 9.1 mg/dL (8.5-10.1); Chloride 107 mmol/L (98-107); Cholesterol 169 mg/dL (200); Creatinine, Serum 0.92 mg/dL (0.70-1.30); EST Glomerular Filtration Rate 85 mL/min (>60); Est Glom Filt Rate - Afr Amer 103 mL/min (>60); Globulin 3.3 g/dL (2.2-4.2); Glucose 89 mg/dL (74-106); High Density Lipoprotein 39 mg/dL; Potassium 3.7 mmol/L (3.5-5.1); Protein, Total 6.7 g/dL (6.4-8.2); Sodium Level 141 mmol/L (136-145); Triglycerides 100 mg/dL; Very Low Density Lipoprotein 20 mg/dL (5-40)
[2019-08-26 14:42] LABS: Vitamin D,25 Hydroxy 38.9 ng/mL (29.95-100.01)
[2019-08-27 11:34] LABS: PSA, Free 0.95 ng/mL; PSA, Free % 20.2 % (.); PSA, Total Ultrasensitive 4.7 ng/mL (0.0-4.0)
== END ==
PROVIDERS: Family Provider Family Medicine; PCP Family Medicine; Referring Provider Family Medicine; Visit Provider Family Medicine
DX: E55.9 Vitamin D deficiency, unspecified (principal); R06.09 Other forms of dyspnea; R97.20 Elevated prostate specific antigen [PSA]; I10 Essential (primary) hypertension
CPT/HCPCS: 36415; 80053; 80061; 82306; 84153; 84154; 84403

== ENCOUNTER → 2020-04-19 09:37 | Outpatient (CLI) | payer MEDICARE, OTHER, SELFPAY ==
[2020-04-19 13:06] LABS: Vitamin D,25 Hydroxy 46.6 ng/mL
[2020-04-19 13:10] LABS: ALB/GLOB Ratio 0.9 RATIO (0.9-2.4); AST(SGOT) 16 U/L (15-37); Alanine Aminotransfer ALT/SGPT 28 U/L (16-61); Albumin, Serum 3.3 g/dL (3.2-5.0); Alkaline Phosphatase 92 U/L (45-117); Anion Gap 6 (5-15); BUN 16 mg/dL (7-18); BUN/Creat Ratio 15.1 RATIO (10-20); Calcium,Total 8.7 mg/dL (8.5-10.1); Chloride 101 mmol/L (98-107); Cholesterol 193 mg/dL (200); Creatinine, Serum 1.06 mg/dL (0.70-1.30); EST Glomerular Filtration Rate 72 mL/min (>60); Est Glom Filt Rate - Afr Amer 87 mL/min (>60); Globulin 3.5 g/dL (2.2-4.2); Glucose 110 mg/dL (74-106); High Density Lipoprotein 42 mg/dL; PSA,Total - Annual Screen 5.27 ng/mL (0.00-4.00); Potassium 3.8 mmol/L (3.5-5.1); Protein, Total 6.8 g/dL (6.4-8.2); Sodium Level 137 mmol/L (136-145); T4 Free Direct 0.85 ng/dL (0.76-1.46); Thyroid Stim Hormone (TSH) 1.28 uIU/mL (0.358-3.74); Triglycerides 86 mg/dL; Very Low Density Lipoprotein 17 mg/dL (5-40)
[2020-04-19 14:36] LABS: Hemoglobin A1c 5.9 % (3.8-5.6)
[2020-04-19 14:46] LABS: Vitamin B12 > 2000 pg/mL (211-911)
== END ==
PROVIDERS: PCP Family Medicine; Referring Provider Family Medicine; Visit Provider Family Medicine
DX: I10 Essential (primary) hypertension (principal); E03.9 Hypothyroidism, unspecified; E55.9 Vitamin D deficiency, unspecified; R97.20 Elevated prostate specific antigen [PSA]; R73.01 Impaired fasting glucose; Z12.5 Encounter for screening for malignant neoplasm of prostate
CPT/HCPCS: 36415; 80053; 80061; 82306; 82607; 83036; 84153; 84439; 84443; G0103

== ENCOUNTER → 2020-07-18 11:52 | Outpatient (CLI) | payer MEDICARE, OTHER, SELFPAY ==
[2020-07-20 14:36] LABS: PSA, Free 0.97 ng/mL; PSA, Free % 16.4 % (.); PSA, Total Ultrasensitive 5.9 ng/mL (0.0-4.0)
== END ==
PROVIDERS: PCP Family Medicine; Visit Provider Family Medicine
DX: R97.20 Elevated prostate specific antigen [PSA] (principal)
CPT/HCPCS: 36415; 84153; 84154

== ENCOUNTER → 2021-04-11 15:49 | Outpatient (CLI) | payer MEDICARE, OTHER, SELFPAY ==
[2021-04-11 18:10] LABS: Hemoglobin A1c 5.9 % (3.8-5.6)
[2021-04-11 18:14] LABS: Vitamin D,25 Hydroxy 41.2 ng/mL
[2021-04-11 18:16] LABS: Vitamin B12 > 2000 pg/mL (211-911)
[2021-04-11 18:17] LABS: Microalbumin,Random Urine 42.3 mg/L (NO RANGE EST.); Microalbumin:Creatinine Ratio 22.3 mg/g CRE (<30 mg/g CRE)
[2021-04-11 18:20] LABS: BNP,B-Type NATRIURETIC PEPTIDE 16.7 pg/mL (0-100)
[2021-04-11 18:23] LABS: Anion Gap 7 (5-15); BUN 13 mg/dL (7-18); BUN/Creat Ratio 12.5 RATIO (10-20); Calcium,Total 9.2 mg/dL (8.5-10.1); Chloride 106 mmol/L (98-107); Cholesterol 178 mg/dL (200); Creatinine, Serum 1.04 mg/dL (0.70-1.30); EST Glomerular Filtration Rate 73 mL/min (>60); Est Glom Filt Rate - Afr Amer 89 mL/min (>60); Glucose 101 mg/dL (74-106); High Density Lipoprotein 52 mg/dL; Potassium 3.5 mmol/L (3.5-5.1); Sodium Level 142 mmol/L (136-145); Thyroid Stim Hormone (TSH) 0.91 uIU/mL (0.358-3.74); Triglycerides 100 mg/dL; Very Low Density Lipoprotein 20 mg/dL (5-40)
[2021-04-14 07:35] LABS: PSA, Free 0.89 ng/mL; PSA, Free % 15.3 % (.); PSA, Total Ultrasensitive 5.8 ng/mL (0.0-4.0)
== END ==
PROVIDERS: PCP Family Medicine; Visit Provider Family Medicine
DX: I10 Essential (primary) hypertension (principal); E03.9 Hypothyroidism, unspecified; E55.9 Vitamin D deficiency, unspecified; R73.01 Impaired fasting glucose; E53.8 Deficiency of other specified B group vitamins
CPT/HCPCS: 36415; 80048; 80061; 82043; 82306; 82570; 82607; 83036; 83880; 84153; 84154; 84443

== ENCOUNTER → 2021-05-23 10:05 | Outpatient (CLI) | payer MEDICARE, OTHER, SELFPAY ==
[2021-05-23 10:31] LABS: EGFR FINGERSTICK > 60.0000 mL/min (>60)
== END ==
PROVIDERS: PCP Family Medicine; Referring Provider Nurse Practitioner Adult Health; Visit Provider Nurse Practitioner Adult Health
DX: R97.20 Elevated prostate specific antigen [PSA] (principal)

== ENCOUNTER → 2021-07-11 18:07 | Outpatient (CLI) | payer MEDICARE, OTHER, SELFPAY ==
--- NOTE | 2021-07-11 16:30 | PROSBIL_PTH ---
PATIENT: NED ARMSTRONG Jr. LOC: [facility] U#:[id number] AGE/SX: 84/M ROOM: RE07/11/[address]: Dr. Juan Us MD : 1940 BED: DIS: SPEC #: [id number] RECD: 07/11/21 17:00 STATUS: KIERSTEN ARTURO #: [id number] HAROON: 07/11/21 16:[address]: Juan Us DEPT: SURGICAL PATHOLOGY RECD BY: Kelly Guzman ENTERED: 07/12/21 12:11 SP TYPE: PROST BX ZIYAD DR: Dr. Martin Pruitt MD Tissues: A - PROSTATE RIGHT B - PROSTATE RIGHT C - PROSTATE RIGHT D - PROSTATE LEFT E - PROSTATE LEFT F - PROSTATE LEFT Procedures: PROSTATE BX HEADER OPERATION: Prostate biopsy PRE-OP DIAGNOSIS: Elevated PSA TISSUE SUBMITTED: A - Right apex, B - Right mid, C - Right base, D - Left apex, E - Left mid, F - Left base MICROSCOPIC DIAGNOSIS A. Right prostate, apex, core biopsy: Prostatic tissue, negative for malignancy. B. Right prostate, mid, core biopsy: Prostatic adenocarcinoma. Pedro grade: 3+4=7 Number of cores involved: 1/1 Proportion of tissue involved: ~30% Perineural invasion: Present. Greatest tumor length: 0.5 cm, discontinuous See comment. C. Right prostate, base, core biopsy: Focal high-grade prostatic intraepithelial neoplasia (HGPIN). D. Left prostate, apex, core biopsy: Prostatic tissue, negative for malignancy. E. Left prostate, mid, core biopsy: Focal high-grade prostatic intraepithelial neoplasia (HGPIN). F. Left prostate, base, core biopsy: Prostatic tissue, negative for malignancy. SJ:lin 07/13/2021 COMMENT Case has been reviewed in consultation with Dr. Heard who concurs with the above diagnosis. IDC:AM MICROSCOPIC DESCRIPTION Slides are reviewed. GROSS DESCRIPTION A - Received is one container designated prostate, right apex. The specimen consists of one elongated fragment of light ramírez-white soft tissue measuring 1.5 cm in length and 0.1 cm in diameter. The specimen is totally submitted in one cassette. B - Received is one container designated prostate, right mid. The specimen consists of one elongated fragment of light ramírez-white soft tissue measuring 1 cm in length and 0.1 cm in diameter. The specimen is totally submitted in one cassette. C - Received is one container designated prostate, right base. The specimen consists of one elongated fragment of light ramírez-white soft tissue measuring 1.5 cm in length and 0.1 cm in diameter. The specimen is totally submitted in one cassette. D - Received is one container designated prostate, left apex. The specimen consists of one elongated fragment of light ramírez-white soft tissue measuring 0.5 cm in length and 0.1 cm in diameter. The specimen is totally submitted in one cassette. E - Received is one container designated prostate, left mid. The specimen consists of two elongated fragments of light ramírez-white soft tissue each measuring 1 cm in length and 0.1 cm in diameter. The specimen is totally submitted in one cassette. F - Received is one container designated prostate, left base. The specimen consists of one elongated fragment of light ramírez-white soft tissue measuring 1 cm in length and 0.1 cm in diameter. The specimen is totally submitted in one cassette. / AM:rg 07/12/21 TC:0 CPT: G0146
== END ==
PROVIDERS: PCP Family Medicine; Visit Provider Urology
DX: R97.20 Elevated prostate specific antigen [PSA] (principal)
CPT/HCPCS: 88305; G0416

== ENCOUNTER → 2021-08-02 13:50 | Outpatient (CLI) | payer MEDICARE, OTHER, SELFPAY ==
[2021-08-02 16:06] LABS: Anion Gap 7 (5-15); BUN 15 mg/dL (7-18); BUN/Creat Ratio 16.3 RATIO (10-20); Calcium,Total 9.4 mg/dL (8.5-10.1); Chloride 105 mmol/L (98-107); Creatinine, Serum 0.92 mg/dL (0.70-1.30); EST Glomerular Filtration Rate 84 mL/min (>60); Est Glom Filt Rate - Afr Amer 102 mL/min (>60); Glucose 90 mg/dL (74-106); Potassium 3.6 mmol/L (3.5-5.1); Sodium Level 141 mmol/L (136-145); T4 Free Direct 0.91 ng/dL (0.76-1.46); Thyroid Stim Hormone (TSH) 0.96 uIU/mL (0.358-3.74)
== END ==
PROVIDERS: PCP Family Medicine; Referring Provider Family Medicine; Visit Provider Family Medicine
DX: I10 Essential (primary) hypertension (principal); E03.9 Hypothyroidism, unspecified
CPT/HCPCS: 36415; 80048; 84439; 84443

== ENCOUNTER → 2022-03-08 | Outpatient (CLI) | payer MEDICARE, OTHER, SELFPAY ==
[2022-03-08 15:28] LABS: Vitamin B12 297 pg/mL (211-911); Vitamin D,25 Hydroxy 42.1 ng/mL
[2022-03-08 15:41] LABS: AST(SGOT) 19 U/L (15-37); Alanine Aminotransfer ALT/SGPT 24 U/L (16-61); Albumin, Serum 3.5 g/dL (3.2-5.0); Alkaline Phosphatase 86 U/L (45-117); Anion Gap 9 (5-15); BUN 21 mg/dL (7-18); BUN/Creat Ratio 19.8 RATIO (10-20); Calcium,Total 9.5 mg/dL (8.5-10.1); Chloride 106 mmol/L (98-107); Cholesterol 179 mg/dL (200); Creatinine, Serum 1.06 mg/dL (0.70-1.30); EST Glomerular Filtration Rate 72 mL/min (>60); Est Glom Filt Rate - Afr Amer 87 mL/min (>60); Globulin 3.5 g/dL (2.2-4.2); Glucose 104 mg/dL (74-106); High Density Lipoprotein 45 mg/dL; Potassium 3.6 mmol/L (3.5-5.1); Sodium Level 141 mmol/L (136-145); Thyroid Stim Hormone (TSH) 1.09 uIU/mL (0.358-3.74); Triglycerides 81 mg/dL; Very Low Density Lipoprotein 16 mg/dL (5-40)
== END | disposition home or self-care (01) ==
PROVIDERS: PCP Family Medicine; Referring Provider Family Medicine; Visit Provider Family Medicine
DX: E55.9 Vitamin D deficiency, unspecified (principal); E53.8 Deficiency of other specified B group vitamins; E03.9 Hypothyroidism, unspecified; R73.01 Impaired fasting glucose
CPT/HCPCS: 36415; 80053; 80061; 82306; 82607; 84443

== ENCOUNTER 2022-05-01 11:30 | Outpatient (RCR) | payer MEDICARE, OTHER, SELFPAY ==
--- NOTE | 2022-03-09 11:39 | HP.PTEVAL ---
Patient's Visit Information NED ARMSTRONG Jr. 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 Date of Evaluation: 03/09/22 Physical Therapist: RAMANDEEP Chang - Visit Plan Frequency: 1-3 Duration: 2 Months Plan: 1-3/ week for 8X/ week for L shoulder PROM and progression of ROM and then starting strengthening following protocol, heat prior to treatment and ice after according to protocol. 7-12 weeks (until 04-06-2022) supine PROM flexion (gentle terminal stretching) and ER PROM to not exceed 30 degrees, Pulleys into flexion. 12 weeks (04-06-2022) FULL AROM, scapular stabilizer exercises, towel stretch, RC strength (low weight and high rep), heat prior to treatment and ice after - Subjective Pt had a L Reverse total shoulder on January 12 down in [place] 8 weeks ago. He has seen the Dr since surgery. He has been doing pendulums at home and other bicep exercises. Sling came off last week. He is not in any pain. He is back to sleeping in a bed. He is now sleeping on the L shoulder and feels great. He is complaining about R hand N&T when he wakes up in the morning. His L shoulder feels wonderful. He had constant pain before the surgery. - Pain L shoulder pain Pain Intensity (Out of 10): 0 - Objective PROM L ER 30 degrees and PROM L Flexion 135 degrees. Pt is doing well with pendulum exercises. He is R handed. - Balance/Special Test Scores Quick DASH Score: 18.1800 - Goals Goal 1:: I HEP Goal Time Frame: 6-8 Weeks Goal 2:: Increase L shoulder AROM to 140 degrees flexion Goal Time Frame: 6-8 Weeks Goal 3:: Increase L shoulder strength to 4/5 (flex, ER, IR) ar DC Goal Time Frame: 6-8 Weeks Goal 4:: Full use of L arm with ADL's and activities around the house. Goal Time Frame: 6-8 Weeks - Rehabilitation Potential Rehabilitation Potential: Good - Anticipated Interventions Patient/Client Instruction: Educate patient on: Condition, Plan of Care For the Purpose of:: To decrease pain, To increase ROM, To improve nutrient delivery to tissue, To increase oxygenation perfusion, To improve muscle performance and motor function, To improve ability to perform ADL's, To increase tolerance to activity/condition/position, To improve performance and independence with ADL's, To decrease level of supervision to perform tasks, To improve ability of physical actions for home/community/work/leisure, To improve health of tissue, To decrease soft tissue restriction, To increase flexibility/ROM Therapeutic Exercise to Include: Strength training, Postural training, Flexibilty training, Neuromotor development, Passive ROM, Active ROM, Scapular Strength/Stabilization For the Purpose of:: To decrease pain, To increase ROM, To improve nutrient delivery to tissue, To improve muscle performance and motor function, To improve ability to perform ADL's, To increase tolerance to activity/condition/position, To improve performance and independence with ADL's, To decrease level of supervision to perform tasks, To improve ability of physical actions for home/community/work/leisure, To improve health of tissue, To decrease soft tissue restriction, To increase flexibility/ROM Manual Therapy Techniques to Include: Passive ROM, Soft tissue mobilization For the Purpose of:: To increase ROM, To improve nutrient delivery to tissue, To increase oxygenation perfusion, To improve health of tissue, To decrease soft tissue restriction, To increase flexibility/ROM Cryotherapy (ice pack, ice massage): Yes Thermo therapy (hot pack): Yes For the Purpose of:: To decrease pain, To increase ROM, To improve nutrient delivery to tissue Thank you for the opportunity to evaluate your patient. For Medicare and Medicare HMO plans, please review the plan of care and approve it. It will need to be FAXED BACK to us at [phone] for Medicare purposes. For Medicare only, by signing this I certify the plan of care. Please let me know if there are questions or concerns regarding this plan of care. Physician Signature: Date:
--- NOTE | 2022-05-01 11:56 | HP.PTDCSUM ---
It has been my pleasure to treat NED ARMSTRONG . referred by DAMON ARCHULETA, with the diagnosis of S/P L Reverse TSA on January 12, 2022 for a total of 8 visit(s). Discharge Date: 05/01/22 Please see the following information for a summary of their discharge status. 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 L shoulder pain Pain Intensity (Out of 10): 0 % Improvement: 100 Objective/Function: L shoulder flex AROM 130 degrees 4/5. L shoulder ER AROM 50 degrees 4/5. L shoulder AROM IR PSIS 4/5. L shoulder AROM ABD 170 4/5 Goal 1:: I HEP Goal Progress: Goal Met Goal 2:: Increase L shoulder AROM to 140 degrees flexion Goal Progress: Progressing Goal 3:: Increase L shoulder strength to 4/5 (flex, ER, IR) ar DC Goal Progress: Goal Met Goal 4:: Full use of L arm with ADL's and activities around the house. Goal Progress: Goal Met Plan: DC PT to I HEP. Issued purple theraband for HEP Discharge Comments: DC PT to HEP. If there are questions or concerns regarding this patient's physical therapy, please feel free to call me at [phone]. Thank you for the referral of this patient. Sincerely, Freda Landers, MPT Balance/Gait/Functional tests - Balance/Special Test Scores Quick DASH Score: 0
== END 2022-05-01 19:00 | disposition home or self-care (01) ==
LOC: PT 11:30
PROVIDERS: PCP Family Medicine
DX: Z47.89 Encounter for other orthopedic aftercare (principal)
CPT/HCPCS: 97110; 97140; 97161; 97530

== ENCOUNTER → 2022-06-14 | Outpatient (CLI) | payer MEDICARE, OTHER, SELFPAY ==
[2022-06-14 17:45] LABS: Absolute Lymphocyte Count 1.71 X10^3/uL (0.83-4.51); Absolute Neutrophil Count 3.6 X10^3/uL (2.0-7.7); Basophil# 0.05 X10^3/uL; Basophil% 0.8 % (0-1); Eosinophil# 0.19 X10^3/uL; Eosinophils% 3.1 % (0-5); Hematocrit 39.1 % (40-54); Hemoglobin 12.8 g/dL (13.0-16.5); Lymphocyte # 1.71 X10^3/ul (0.83-4.51); Lymphocyte % 28.1 % (19-41); Mean Corp Hgb Conc 32.7 g/dL (32-36); Mean Corpuscular Hgb 28.9 pg (27.0-32.0); Mean Corpuscular Volume 88.3 fL (80-94); Mean Platelet Vol. 11.8 fl (6.2-12.0); Monocyte# 0.46 X10^3/uL; Monocyte% 7.6 % (0-10); NRBC Flagged by Analyzer 0 % (0-5); Neutrophil # 3.64 X10^3/uL (2.7-7.7); Neutrophil % 59.9 % (47-70); Platelet Count 172 K/mm3 (150-450); RBC Distribution Width CV 13.4 % (11.6-14.6); RBC Distribution Width SD 43.7 fl (35.1-43.9); Red Blood Count 4.43 M/mm3 (4.6-6.2); White Blood Count 6.1 K/mm3 (4.4-11.0)
[2022-06-14 18:20] LABS: Vitamin B12 469 pg/mL (211-911)
[2022-06-14 18:26] LABS: AST(SGOT) 16 U/L (15-37); Alanine Aminotransfer ALT/SGPT 23 U/L (16-61); Albumin, Serum 3.4 g/dL (3.2-5.0); Alkaline Phosphatase 89 U/L (45-117); Anion Gap 7 (5-15); BUN 18 mg/dL (7-18); BUN/Creat Ratio 18.3 RATIO (10-20); Calcium,Total 8.9 mg/dL (8.5-10.1); Chloride 103 mmol/L (98-107); Creatinine, Serum 0.98 mg/dL (0.70-1.30); EST Glomerular Filtration Rate 78 mL/min (>60); Est Glom Filt Rate - Afr Amer 95 mL/min (>60); Globulin 3.4 g/dL (2.2-4.2); Glucose 96 mg/dL (74-106); PSA,Total- Diagnostic 7.77 ng/mL (0.0-4.0); Potassium 3.8 mmol/L (3.5-5.1); Protein, Total 6.8 g/dL (6.4-8.2); Sodium Level 138 mmol/L (136-145); Thyroid Stim Hormone (TSH) 0.79 uIU/mL (0.358-3.74)
== END | disposition home or self-care (01) ==
LOC: MFPLAB 16:26
PROVIDERS: PCP Family Medicine; Visit Provider Family Medicine
DX: E53.8 Deficiency of other specified B group vitamins (principal); D69.1 Qualitative platelet defects; E03.9 Hypothyroidism, unspecified; R97.20 Elevated prostate specific antigen [PSA]; I10 Essential (primary) hypertension
CPT/HCPCS: 36415; 80053; 82607; 84153; 84439; 84443; 85025

== ENCOUNTER → 2022-07-04 | Outpatient (CLI) | payer MEDICARE, OTHER, SELFPAY ==
--- NOTE | 2022-07-04 09:43 | MRI_ITS ---
MR Prostate WO/W Contrast 07/04/2022 10:47 AM COMPARISON: None CLINICAL HISTORY: 81-year-old male with malignant neoplasm of the prostate. TECHNIQUE: Standard prostate MRI protocol was used before and after administration of 22 cc of IV Clariscan. FINDINGS: Prostate volume: 70 cc PSA density: PSA level not provided. Length of membranous urethra: 20 mm Post-biopsy hemorrhage: Yes Multiparametric MR evaluation: Heterogeneous appearance of the central gland is consistent with benign prostatic hyperplasia. Lesion 1: LOCATION - large moderately T2 hypointense ill-defined mass measuring approximately 1 x 4.1 x 2.2 cm involving the bilateral medial and posterior lateral peripheral zones at mid gland. It is mildly bright on DWI and moderately dark on ADC map. It also likely extends into the bilateral left anterior and posterior transitional zone from base to apex. T2 - 5 DWI - 5 DCE - inconclusive Overall PI-RADS v2 score = 5 Capsular margin and neurovascular bundle: 4 mm of macro capsular extension from the left posterolateral peripheral zone into the periprostatic fat on the left. Cannot rule out involvement of the neurovascular bundle on the left. Seminal vesicles: Possible early invasion of the bilateral seminal vesicles, left more so than right. Lymph nodes: Prominent 1.4 cm right external iliac node. Prominent 1.1 cm left external iliac node. 4 mm left pelvic sidewall node. Bones: No suspicious lesions in the field of view. MRI/Pelvis W/WO Contrast IMPRESSION: 4.1 cm PIRADS 5 lesion involving the bilateral medial and posterolateral PZ at mid gland. It also likely extends into the bilateral left anterior and posterior transitional zone from base to apex. - 4 mm of macro capsular extension from the left posterolateral peripheral zone into the periprostatic fat on the left. Cannot rule out involvement of the neurovascular bundle on the left. - Possible early invasion of the bilateral seminal vesicles, left more so than right. - Prominent 1.4 cm right external iliac node. Prominent 1.1 cm left external iliac node. 4 mm left pelvic sidewall node. - No suspicious bone lesions. Benign prostatic hyperplasia. Postbiopsy hemorrhage in the right posterolateral peripheral zone. Electronically Signed: Martin Cervantes MD at 19:11 EDT ,
== END | disposition home or self-care (01) ==
LOC: MRI 09:38
PROVIDERS: PCP Family Medicine; Referring Provider Urology; Visit Provider Urology
DX: C61 Malignant neoplasm of prostate (principal)
CPT/HCPCS: 72197; A9575

== ENCOUNTER → 2022-07-09 | Outpatient (CLI) | payer MEDICARE, OTHER, SELFPAY ==
--- NOTE | 2022-07-09 09:41 | NM_ITS ---
CLINICAL: 81-year-old male with history of carcinoma of the prostate. WHOLE BODY 99m Tc MDP RADIONUCLIDE BONE SCINTIGRAPHY COMPARISON: None available FINDINGS: Following the intravenous administration of 26.1 mCi of 99m Tc MDP, whole body bone images reveal: 1. Increased radiopharmaceutical concentration is identified in the upper cervical spine posteriorly on the right, mid-lower cervical spine posteriorly on the left, the seventh thoracic vertebra posteriorly on the left, third and fourth lumbar vertebra posteriorly on the left and right, the sternoclavicular of both shoulders, the glenohumeral and acromioclavicular compartment of the right shoulder, the visualized left and right wrists, hands the knee articulations bilaterally. 2. The remaining skeletal structures are scintigraphically unremarkable with normal-appearing renal images and urinary bladder activity identified. A presumed asymptomatic left shoulder arthroplasty is defined with increased uptake in the glenoid and humeral components most consistent with normal postsurgical change. NM/Bone Scan Whole Body IMPRESSION: 1. The increase in arthroidal radiotracer concentration identified in the appendicular and axial skeletal structures with degenerative arthrosis. 2. There is no definitive scintigraphic evidence of osseous metastatic disease. Electronically Signed: Johnny Gil, at 21:51 EDT ,
== END | disposition home or self-care (01) ==
LOC: NM 09:31
PROVIDERS: PCP Family Medicine; Referring Provider Urology; Visit Provider Urology
DX: C61 Malignant neoplasm of prostate (principal)
CPT/HCPCS: 78306; A9503

== ENCOUNTER → 2022-07-23 | Outpatient (CLI) | payer MEDICARE, OTHER, SELFPAY ==
--- NOTE | 2022-07-23 | IMM_PTH ---
PATIENT: NED ARMSTRONG Jr. LOC: [facility] U#:[id number] AGE/SX: 81/M ROOM: RE07/23/[address]: Dr. Juan Us MD : 1940 BED: DIS: 07/23/2022 SPEC #: [id number] RECD: 07/25/22 10:03 STATUS: KIERSTEN REHank #: [id number] HAROON: 07/23/22 00:[address]: Juan Us DEPT: IMMUNOHISTOCHEMISTRY RECD BY: Naa Reynolds ENTERED: 07/25/22 10:05 SP TYPE: IMMUNO OTHR DR: Dr. Martin Pruitt MD Tissues: B - PROSTATE RIGHT Procedures: P40 (add) 34BE12 (initial) PHYSICIAN & INSTITUTION [facility] [id number] SPECIMEN INFORMATION: Tissue Source: B - Right prostate, mid, core biopsy Clinical Info: Elevated PSA Specimen Number: [id number] CPT code: 32769, 10818 METHODOLOGY: Deparaffinized sections of prefer/formalin-fixed tissue or PAP/DQ stained slides are incubated with monoclonal/polyclonal antibodies/oligonucleotide probes. Localization is made via biotin free immunoperoxidase method. Appropriate controls are performed and reacted as expected. Results on target cell population are indicated in the following table: RESULTS: ANTIBODY / CLONE RESULT Block B P40 (BC28) negative 34BE12 (34BE12) negative These tests were developed and their performance characteristics determined by [facility]. They may not have been cleared or approved by the U.S. Food and Drug Administration. The FDA has determined that such clearance or approval is not necessary. The above immunohistochemical/dualISH markers are ordered and reviewed by the Pathologist. INTERPRETATION: B. Right prostate, mid, core biopsy: Adenocarcinoma. SJ:lin 07/26/2022
--- NOTE | 2022-07-23 | PROSBIL_PTH ---
PATIENT: NED ARMSTRONG Jr. LOC: [facility] U#:[id number] AGE/SX: 81/M ROOM: RE07/23/[address]: Dr. Juan Us MD : 1940 BED: DIS: 07/23/2022 SPEC #: [id number] RECD: 07/23/22 15:14 STATUS: KIERSTEN MORRIS #: [id number] HAROON: 07/23/22 00:[address]: Juan Us DEPT: SURGICAL PATHOLOGY RECD BY: Sergio Siegel ENTERED: 07/24/22 15:15 SP TYPE: PROST BX ZIYAD DR: Dr. Martin Pruitt MD Tissues: A - PROSTATE RIGHT B - PROSTATE RIGHT C - PROSTATE RIGHT D - PROSTATE LEFT E - PROSTATE LEFT F - PROSTATE LEFT Procedures: PROSTATE BX HEADER OPERATION: Prostate biopsy PRE-OP DIAGNOSIS: Elevated PSA R97.20 TISSUE SUBMITTED: A - Right apex, B - Right mid, C - Right base, D - Left apex, E - Left mid, F - Left base MICROSCOPIC DIAGNOSIS A. Right prostate, apex, core biopsy: Focal high-grade prostatic intraepithelial neoplasia (HGPIN). B. Right prostate, mid, core biopsy: Prostatic adenocarcinoma. Woodford grade: 3+3=6 Number of cores involved: 1/2 Proportion of tissue involved: ~5% Perineural invasion: Present, frequent. Greatest tumor length: 0.2 cm Focal high-grade prostatic intraepithelial neoplasia (HGPIN). See comment. C. Right prostate, base, core biopsy: Focal high-grade prostatic intraepithelial neoplasia (HGPIN). D. Left prostate, apex, core biopsy: Prostatic stromal tissue, negative for malignancy. E. Left prostate, mid, core biopsy: Prostatic tissue, predominantly consists of prostatic stromal tissue, negative for malignancy. F. Left prostate, base, core biopsy: Prostatic tissue, negative for malignancy. SJ:lin 07/25/2022 COMMENT B. Immunohistochemistry ([id number]) supports the above diagnosis. Please make reference to previous specimen ([id number]) right prostate, mid, core biopsy with diagnosis of ?prostatic adenocarcinoma? and right prostate, base and left prostate, mid, core biopsies with diagnosis of ?focal high-grade prostatic intraepithelial neoplasia.? Case has been reviewed in consultation with Dr. Heard who concurs with the above diagnosis. IDC:AM MICROSCOPIC DESCRIPTION Slides are reviewed. GROSS DESCRIPTION A - Received is one container designated prostate, right apex. The specimen consists of two elongated fragments of light ramírez-white soft tissue measuring 0.5 and 1.2 cm in length and 0.1 cm in diameter. The specimen is totally submitted in one cassette. B - Received is one container designated prostate, right mid. The specimen consists of two elongated fragments of light ramírez-white soft tissue measuring 1 and 1.5 cm in length and 0.1 cm in diameter. The specimen is totally submitted in one cassette. C - Received is one container designated prostate, right base. The specimen consists of two elongated fragments of light ramírez-white soft tissue measuring 1.5 and 2 cm in length and 0.1 cm in diameter. The specimen is totally submitted in one cassette. D - Received is one container designated prostate, left apex. The specimen consists of one elongated fragment of light ramírez-white soft tissue measuring 1.2 cm in length and 0.1 cm in diameter. The specimen is totally submitted in one cassette. E - Received is one container designated prostate, left mid. The specimen consists of two elongated fragments of light ramírez-white soft tissue each measuring 1.4 cm in length and 0.1 cm in diameter. The specimen is totally submitted in one cassette. F - Received is one container designated prostate, left base. The specimen consists of two elongated fragments of light ramírez-white soft tissue measuring 0.5 and 2.5 cm in length and 0.1 cm in diameter. The specimen is totally submitted in one cassette. / SJ:rg 07/24/2022 TC:0 CPT: G0146
== END | disposition home or self-care (01) ==
PROVIDERS: PCP Family Medicine; Visit Provider Urology
DX: C61 Malignant neoplasm of prostate (principal)
CPT/HCPCS: 88305; 88341; 88342; G0416

== ENCOUNTER → 2023-04-17 | Outpatient (CLI) | payer MEDICARE, OTHER, SELFPAY ==
[2023-04-17 13:01] LABS: Absolute Lymphocyte Count 1.43 X10^3/uL (0.83-4.51); Absolute Neutrophil Count 3.1 X10^3/uL (2.0-7.7); Basophil# 0.03 X10^3/uL; Basophil% 0.6 % (0-1); Eosinophil# 0.21 X10^3/uL; Hematocrit 38.3 % (40-54); Hemoglobin 11.8 g/dL (13.0-16.5); Lymphocyte # 1.43 X10^3/ul (0.83-4.51); Mean Corp Hgb Conc 30.8 g/dL (32-36); Mean Corpuscular Hgb 28.6 pg (27.0-32.0); Monocyte# 0.52 X10^3/uL; Monocyte% 9.8 % (0-10); NRBC Flagged by Analyzer 0 % (0-5); Neutrophil % 58.4 % (47-70); Platelet Count 169 K/mm3 (150-450); RBC Distribution Width SD 51.3 fl (35.1-43.9); RET-HE 32.1 pg (30-35); Red Blood Count 4.12 M/mm3 (4.6-6.2); Reticulocyte Count 1.62 % (0.5-1.5); White Blood Count 5.3 K/mm3 (4.4-11.0)
[2023-04-17 13:38] LABS: Vitamin D,25 Hydroxy 56.4 ng/mL
[2023-04-17 13:41] LABS: ALB/GLOB Ratio 0.9 RATIO (0.9-2.4); AST(SGOT) 14 U/L (15-37); Alanine Aminotransfer ALT/SGPT 17 U/L (16-61); Albumin, Serum 3.2 g/dL (3.2-5.0); Alkaline Phosphatase 76 U/L (45-117); Anion Gap 4 (5-15); BUN 23 mg/dL (7-18); BUN/Creat Ratio 19.8 RATIO (10-20); Calcium,Total 8.7 mg/dL (8.5-10.1); Chloride 109 mmol/L (98-107); Cholesterol 203 mg/dL (200); Creatinine, Serum 1.16 mg/dL (0.70-1.30); EST Glomerular Filtration Rate 64 mL/min (>60); Est Glom Filt Rate - Afr Amer 78 mL/min (>60); Ferritin 66 ng/mL (26-388); Globulin 3.5 g/dL (2.2-4.2); Glucose 100 mg/dL (74-106); High Density Lipoprotein 40 mg/dL; Iron 51 ug/dL (65-175); PSA,Total- Diagnostic 8.46 ng/mL (0.0-4.0); Potassium 4.3 mmol/L (3.5-5.1); Protein, Total 6.7 g/dL (6.4-8.2); Sodium Level 142 mmol/L (136-145); T4 Free Direct 0.96 ng/dL (0.76-1.46); Thyroid Stim Hormone (TSH) 1.07 uIU/mL (0.358-3.74); Triglycerides 84 mg/dL; Very Low Density Lipoprotein 17 mg/dL (5-40)
== END | disposition home or self-care (01) ==
LOC: MFPLAB 10:39
PROVIDERS: PCP Family Medicine; Visit Provider Family Medicine
DX: D64.9 Anemia, unspecified (principal); C61 Malignant neoplasm of prostate; E78.5 Hyperlipidemia, unspecified; E03.9 Hypothyroidism, unspecified; E55.9 Vitamin D deficiency, unspecified
CPT/HCPCS: 36415; 80053; 80061; 82306; 82728; 83540; 84153; 84439; 84443; 85025; 85045

== ENCOUNTER → 2023-05-08 | Outpatient (CLI) | payer MEDICARE, OTHER, SELFPAY ==
--- NOTE | 2023-05-08 11:23 | MRI_ITS ---
MR Prostate WO/W Contrast 05/08/2023 11:42 AM COMPARISON: 07/04/2022 CLINICAL HISTORY: 82-year-old male with elevated PSA TECHNIQUE: Standard prostate MRI protocol was used before and after administration of 22 cc of IV Clariscan. FINDINGS: PSA density: PSA level not provided. Length of membranous urethra: 20 mm Post-biopsy hemorrhage: No Multiparametric MR evaluation: Heterogeneous appearance of the central gland is consistent with benign prostatic hyperplasia. Lesion 1: LOCATION -redemonstration of a large moderately T2 hypointense ill-defined mass in the bilateral medial and posterior lateral peripheral zones at mid gland. Is slightly increased in size measuring 4.3 x 2.1 cm, previously 4.3 x 1.3 cm. It is mildly bright on DWI and moderately dark on ADC map. It also extends into the bilateral posterior transitional zone from base to apex. T2 - 5 DWI - 5 DCE - inconclusive Overall PI-RADS v2 score = 5 Capsular margin and neurovascular bundle: Redemonstration of macro capsular extension from the left posterolateral peripheral zone into the periprostatic fat on the left. Cannot rule out involvement of the neurovascular bundle on the left. Seminal vesicles: Likely bilateral seminal vesicle involvement. Lymph nodes: No suspicious lymphadenopathy. Bones: No suspicious lesions in the field of view. MRI/Pelvis W/WO Contrast IMPRESSION: Slight increase in size of 4.3 cm PI-RADS 5 lesion involving the bilateral medial and posterolateral PZ at mid gland. It also likely extends into the bilateral posterior TZ from base to apex. -Redemonstration of macro capsular extension from the left posterolateral peripheral zone into the periprostatic fat on the left. Cannot rule out involvement of the neurovascular bundle on the left. -Likely bilateral seminal vesicle invasion. - No suspicious lymphadenopathy. - No suspicious bone lesions. Benign prostatic hyperplasia. Electronically Signed: Martin Cervantes MD at 17:30 EDT ,
== END | disposition home or self-care (01) ==
LOC: MRI 11:03
PROVIDERS: PCP Family Medicine; Referring Provider Urology; Visit Provider Urology
DX: R97.20 Elevated prostate specific antigen [PSA] (principal)
CPT/HCPCS: 72197; A9575

== ENCOUNTER → 2023-06-14 | Outpatient (CLI) | payer MEDICARE, OTHER, SELFPAY ==
[2023-06-14 17:45] LABS: Absolute Lymphocyte Count 1.83 X10^3/uL (0.83-4.51); Absolute Neutrophil Count 6.9 X10^3/uL (2.0-7.7); Basophil# 0.05 X10^3/uL; Basophil% 0.5 % (0-1); Eosinophil# 0.12 X10^3/uL; Eosinophils% 1.2 % (0-5); Hematocrit 39.6 % (40-54); Hemoglobin 12.5 g/dL (13.0-16.5); Lymphocyte # 1.83 X10^3/ul (0.83-4.51); Mean Corp Hgb Conc 31.6 g/dL (32-36); Mean Corpuscular Hgb 28.4 pg (27.0-32.0); Mean Platelet Vol. 12.6 fl (6.2-12.0); Monocyte# 0.65 X10^3/uL; Monocyte% 6.8 % (0-10); NRBC Flagged by Analyzer 0 % (0-5); Neutrophil # 6.93 X10^3/uL (2.7-7.7); Neutrophil % 72.1 % (47-70); Platelet Count 221 K/mm3 (150-450); RBC Distribution Width CV 12.9 % (11.6-14.6); RBC Distribution Width SD 42.5 fl (35.1-43.9); White Blood Count 9.6 K/mm3 (4.4-11.0)
[2023-06-14 18:11] LABS: Hemoglobin A1c 6.1 % (3.8-5.6)
[2023-06-14 18:16] LABS: ALB/GLOB Ratio 0.8 RATIO (0.9-2.4); AST(SGOT) 14 U/L (15-37); Alanine Aminotransfer ALT/SGPT 33 U/L (16-61); Albumin, Serum 3.3 g/dL (3.2-5.0); Alkaline Phosphatase 100 U/L (45-117); Anion Gap 6 (5-15); BUN 29 mg/dL (7-18); BUN/Creat Ratio 24.6 RATIO (10-20); Calcium,Total 9.4 mg/dL (8.5-10.1); Chloride 100 mmol/L (98-107); Cholesterol 202 mg/dL (200); Creatinine, Serum 1.18 mg/dL (0.70-1.30); EST Glomerular Filtration Rate 63 mL/min (>60); Est Glom Filt Rate - Afr Amer 76 mL/min (>60); Ferritin 242 ng/mL (26-388); Glucose 99 mg/dL (74-106); High Density Lipoprotein 34 mg/dL; Iron 50 ug/dL (65-175); Iron Binding Capacity,Total 325 ug/dL (250-450); PERCENT IRON SATURATION 15.4 % (15.0-55.0); Potassium 4.3 mmol/L (3.5-5.1); Protein, Total 7.3 g/dL (6.4-8.2); Sodium Level 136 mmol/L (136-145); Thyroid Stim Hormone (TSH) 1.36 uIU/mL (0.358-3.74); Triglycerides 124 mg/dL; Very Low Density Lipoprotein 25 mg/dL (5-40)
== END | disposition home or self-care (01) ==
LOC: MFPLAB 15:39
PROVIDERS: PCP Family Medicine; Visit Provider Family Medicine
DX: Z01.818 Encounter for other preprocedural examination (principal); C61 Malignant neoplasm of prostate; R53.83 Other fatigue; E78.5 Hyperlipidemia, unspecified; R94.31 Abnormal electrocardiogram [ECG] [EKG]; R73.09 Other abnormal glucose
CPT/HCPCS: 36415; 80053; 80061; 82728; 83036; 83540; 83550; 84443; 85025

== ENCOUNTER → 2023-09-03 | Outpatient (CLI) | payer MEDICARE, OTHER, SELFPAY ==
[2023-09-03 15:49] LABS: Hematocrit 34.8 % (40-54); Hemoglobin 10.4 g/dL (13.0-16.5); Mean Corp Hgb Conc 29.9 g/dL (32-36); Mean Corpuscular Volume 93.5 fL (80-94); Mean Platelet Vol. 11.7 fl (6.2-12.0); Platelet Count 187 K/mm3 (150-450); RBC Distribution Width CV 15.5 % (11.6-14.6); RBC Distribution Width SD 53.3 fl (35.1-43.9); Red Blood Count 3.72 M/mm3 (4.6-6.2); White Blood Count 5.5 K/mm3 (4.4-11.0)
[2023-09-03 16:58] LABS: Vitamin D,25 Hydroxy 35.8 ng/mL
[2023-09-03 17:05] LABS: AST(SGOT) 18 U/L (15-37); Alanine Aminotransfer ALT/SGPT 16 U/L (16-61); Albumin, Serum 3.1 g/dL (3.2-5.0); Alkaline Phosphatase 80 U/L (45-117); Anion Gap 6 (5-15); BUN 11 mg/dL (7-18); BUN/Creat Ratio 14.9 RATIO (10-20); Calcium,Total 8.7 mg/dL (8.5-10.1); Chloride 108 mmol/L (98-107); Creatinine, Serum 0.74 mg/dL (0.70-1.30); EST Glomerular Filtration Rate 108 mL/min (>60); Est Glom Filt Rate - Afr Amer 131 mL/min (>60); Glucose 88 mg/dL (74-106); Potassium 4.2 mmol/L (3.5-5.1); Protein, Total 6.1 g/dL (6.4-8.2); Sodium Level 142 mmol/L (136-145)
== END | disposition home or self-care (01) ==
LOC: MFPLAB 11:40
PROVIDERS: PCP Family Medicine; Visit Provider Family Medicine
DX: I48.91 Unspecified atrial fibrillation (principal); E03.9 Hypothyroidism, unspecified; E55.9 Vitamin D deficiency, unspecified
CPT/HCPCS: 36415; 80053; 82306; 84443; 85027

== ENCOUNTER → 2024-03-20 | Outpatient (CLI) | payer MEDICARE, OTHER, SELFPAY ==
[2024-03-20 17:30] LABS: Hematocrit 38.1 % (40-54); Hemoglobin 12.3 g/dL (13.0-16.5); Mean Corp Hgb Conc 32.3 g/dL (32-36); Mean Corpuscular Hgb 29.1 pg (27.0-32.0); Mean Corpuscular Volume 90.1 fL (80-94); Mean Platelet Vol. 11.6 fl (6.2-12.0); Platelet Count 175 K/mm3 (150-450); RBC Distribution Width CV 13.4 % (11.6-14.6); RBC Distribution Width SD 44.6 fl (35.1-43.9); Red Blood Count 4.23 M/mm3 (4.6-6.2); White Blood Count 6.2 K/mm3 (4.4-11.0)
[2024-03-20 17:45] LABS: Vitamin D,25 Hydroxy 46.7 ng/mL
[2024-03-20 17:53] LABS: ALB/GLOB Ratio 1.1 RATIO (0.9-2.4); AST(SGOT) 18 U/L (15-37); Alanine Aminotransfer ALT/SGPT 21 U/L (16-61); Albumin, Serum 3.6 g/dL (3.2-5.0); Alkaline Phosphatase 87 U/L (45-117); Anion Gap 7 (5-15); BUN 16 mg/dL (7-18); BUN/Creat Ratio 14.3 RATIO (10-20); Calcium,Total 9.4 mg/dL (8.5-10.1); Chloride 107 mmol/L (98-107); Cholesterol 188 mg/dL (200); Creatinine, Serum 1.12 mg/dL (0.70-1.30); EST Glomerular Filtration Rate 67 mL/min (>60); Est Glom Filt Rate - Afr Amer 81 mL/min (>60); Globulin 3.2 g/dL (2.2-4.2); Glucose 96 mg/dL (74-106); High Density Lipoprotein 44 mg/dL; Potassium 3.7 mmol/L (3.5-5.1); Protein, Total 6.8 g/dL (6.4-8.2); Sodium Level 141 mmol/L (136-145); Triglycerides 108 mg/dL; Very Low Density Lipoprotein 22 mg/dL (5-40)
== END | disposition home or self-care (01) ==
LOC: MFPLAB 14:15
PROVIDERS: PCP Family Medicine; Visit Provider Family Medicine
DX: E78.5 Hyperlipidemia, unspecified (principal); E03.9 Hypothyroidism, unspecified; E55.9 Vitamin D deficiency, unspecified
CPT/HCPCS: 36415; 80053; 80061; 82306; 84443; 85027

== ENCOUNTER → 2024-04-14 | Outpatient (CLI) | payer MEDICARE, OTHER, SELFPAY ==
--- NOTE | 2024-04-14 12:35 | RAD_ITS ---
STUDY: X-RAY CHEST REASON FOR EXAM: Male, 83 years old. Cough and wheezing. TECHNIQUE: Frontal and lateral views of the chest on 4 images. COMPARISON: None. FINDINGS: Hyperinflation with diffuse interstitial prominence with a basilar predilection. Scattered healed granulomatous calcifications. There is no demonstrated pleural abnormality. Cardiomegaly. Normal mediastinum and mary lou. Normal visualized pulmonary arteries. Marked aortic tortuosity with calcification. Diffuse thoracic osteopenia with diffuse moderate thoracic spondylosis. Bilateral total shoulder arthroplasties. No abnormality of the visualized soft tissue structures of the upper abdomen. RAD/Chest PA and Lateral IMPRESSION: Findings compatible with mild interstitial edema/congestive failure. Follow-up chest imaging to resolution recommended. No acute or emergent finding. Electronically Signed: Jonny Burk MD at 13:31 EDT ,
== END | disposition home or self-care (01) ==
LOC: MTRAD 12:35
PROVIDERS: PCP Family Medicine; Referring Provider Family Medicine; Visit Provider Family Medicine
DX: R05.9 Cough, unspecified (principal)
CPT/HCPCS: 71046

== ENCOUNTER 2024-04-27 14:42 | Inpatient (IN) | payer MEDICARE, OTHER, SELFPAY ==
[2024-04-27] VITALS (12 sets, daily range): BP systolic 111–153; BP diastolic 57–89; PULSE 73–89; RESP 16–25; TEMP 36.6–37.8; O2SAT 5–93; BMI 41.7; BMI 41.2
--- NOTE | 2024-04-27 15:05 | EKG12_ITS ---
Test Reason : SOB Blood Pressure : / mmHG Vent. Rate : 093 BPM Atrial Rate : 093 BPM P-R Int : 164 ms QRS Dur : 088 ms QT Int : 354 ms P-R-T Axes : 081 -46 063 degrees QTc Int : 440 ms Sinus rhythm with Premature atrial complexes Left axis deviation Pulmonary disease pattern Septal infarct (cited on or before 17-AUG-2009) Abnormal ECG Confirmed by MORRIS RIOS, JERI ([id number]), restaurant expeditor MARISSA MAYA ([id number]) on 04/29/2024 9:57:25 AM Referred By: Confirmed By:BART CACERES MD
--- NOTE | 2024-04-27 15:19 | EDS_ITS ---
HPI History of Present Illness Chief Complaint: Shortness of Breath Informant: patient and spouse/S.O. Narrative Narrative: Patient is an 83-year-old male presenting with worsening shortness of breath, cough and hypoxia. Patient has been dealing with a cough and respiratory symptoms for the past 3 weeks. She saw his primary care doctor was placed on an antibiotic. He was not getting better and then about a week later was prescribed prednisone, albuterol and cough medicine with codeine in it. He also was given a water pill. He states he is a couple days left on the water pill but is continuing to have worsening symptoms. He followed up again with his PCP today, Dr. De La Vega, who states that he was hypoxic in the office at 85% and was also worried about CHF (new onset). Patient was sent to the emergency room for further evaluation. Patient has been having a hard time sleeping at night but does not feel like it is worse when he lays down. Does have some slight swelling of his legs that he thinks is worse than normal. Has had sputum production that is thick and green in color. Had a low-grade temperature of 99 degrees today. Is had some mild nausea. Denies any sore throat, chest pain, abdominal pain, change in bowel habits or urinary symptoms. Has a history of hypertension, hyperlipidemia, aortic stenosis, obstructive sleep apnea (compliant with his BiPAP) and a transient episode of A-fib but is not on any anticoagulation. 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 As far as he is aware of he does not have a history of heart failure and had an echocardiogram in [place] and was told everything was normal. No other complaints or concerns reported at this time. [facility] Home Medications ?Medication ?Instructions ?Recorded ?Last Taken ?Type albuterol sulfate 90 mcg/actuation 2 puff inhalation 4X/DAY PRN PRN 04/27/24 Unknown History aerosol inhaler cough atorvastatin 20 mg tablet 20 mg PO DAILY 04/27/24 Unknown History chlorthalidone 25 mg tablet 25 mg PO DAILY 04/27/24 Unknown History codeine 10 mg-guaifenesin 100 mg/5 10 ml PO 4X/DAY PRN PRN cough 04/27/24 Unknown History mL oral liquid flecainide 50 mg tablet 50 mg PO BID 04/27/24 Unknown History furosemide 20 mg tablet 20 mg PO DAILY 04/27/24 Unknown History levothyroxine 50 mcg tablet 50 mcg PO DAILY 04/27/24 Unknown History (Synthroid) metoprolol succinate 25 mg 25 mg PO DAILY 04/27/24 Unknown History tablet,extended release 24 hr valsartan 160 mg tablet 160 mg PO DAILY 04/27/24 Unknown History Allergy/AdvReac Type Severity Reaction Status Date / Time No Known Allergies Allergy Verified 04/27/24 14:43 Social History Smoking Status: Never smoker ROS ROS ED Constitutional Constitutional ED: Reports chills and fever(s) Eyes Eyes: Denies change in vision ENT ENT ED: Denies rhinorrhea or sore throat Cardiovascular Cardiovascular: Denies chest pain Respiratory/Chest Respiratory/Chest: Reports cough, dyspnea, dyspnea on exertion and sputum Gastrointestinal Gastrointestinal: Reports nausea; Denies abdominal pain, diarrhea or vomiting Genitourinary Genitourinary ED: Denies dysuria or urinary frequency Musculoskeletal Musculoskeletal: Denies arthralgias or myalgias Integumentary Denies rash Neurologic Neurologic: Denies headache(s) Hematologic/Lymphatic Hematologic/Lymphatic: Denies easy bleeding or easy bruising EXAM Physical Exam Const Vital Signs: 04/27/24 14:43 04/27/24 14:43 04/27/24 15:15 Temperature 99 F Temperature Source Temporal Pulse Rate 87 Respiratory Rate 25 H Respiratory Effort Respiratory Depth Respiratory Pattern Blood Pressure 141/62 H Blood Pressure Mean 88 Pulse Ox 92 92 Oxygen Delivery Method Nasal Cannula Nasal Cannula Nasal Cannula Oxygen Flow Rate (L/min) 3 3 3 04/27/24 15:18 04/27/24 15:42 04/27/24 15:43 Temperature Temperature Source Pulse Rate 89 89 Respiratory Rate 19 H 25 H Respiratory Effort Short of Breath Labored Respiratory Depth Shallow Respiratory Pattern Tachypnea Blood Pressure 111/89 H Blood Pressure Mean 96 Pulse Ox 92 Oxygen Delivery Method Nasal Cannula Oxygen Flow Rate (L/min) 3 04/27/24 15:45 04/27/24 15:47 04/27/24 16:00 Temperature 99 F 98.2 F Temperature Source Temporal Temporal Pulse Rate 89 86 Respiratory Rate 25 H 16 Respiratory Effort Respiratory Depth Respiratory Pattern Blood Pressure 111/89 H 153/57 H Blood Pressure Mean 96 89 Pulse Ox 92 92 92 Oxygen Delivery Method Nasal Cannula Nasal Cannula Nasal Cannula Oxygen Flow Rate (L/min) 3 3 04/27/24 16:42 Temperature 100.0 F H Temperature Source Oral Pulse Rate Respiratory Rate Respiratory Effort Respiratory Depth Respiratory Pattern Blood Pressure Blood Pressure Mean Pulse Ox Oxygen Delivery Method Oxygen Flow Rate (L/min) Positive well nourished and well developed General Appearance ED: well developed and NAD HEENT Reports moist mucous membranes Eyes PERRL Neck supple and no JVD Resp Resp Narrative: Slight pursed lip breathing present. Coarse breath sounds with rhonchi at the bases appreciated. Cough in the room productive of very thick purulent appearing sputum. Auscultation: Negative for wheezes or diminished lung sounds Cardio regular rate and regular rhythm GI non-tender and non-distended Auscultation: normoactive bowel sounds Palpation: soft Extremity normal to inspection General Extremety ED: Negative for edema General Extremity: Negative for edema Neuro oriented x3 Sensorium / Orientation: alert Motor Exam: general weakness Psych mental status grossly normal Skin no wounds MDM MDM MDM Narrative Medical decision making narrative: Patient is evaluated for worsening respiratory symptoms as well as acute hypoxia. He is 92% on 3 L and does not wear home oxygen. Presentation to me seems more of an infectious etiology but is a bit mixed and CHF/cardiac etiology is also in the differential. Will obtain workup including CBC, BMP, lactate, troponin, BNP and two-view chest x-ray. Will give patient a DuoNeb as well. Will hold off on antibiotics and fluids until workup is back. Patient's white blood cell count is normal at 11.0. He is mildly anemic with hemoglobin 11.3 which is near his baseline. His white blood cell count is up from what it was last month (6.2) however he does not have a significant shift. BMP shows a mild elevation of his creatinine 1.35 (baseline is around 1) and his high since he troponin and BNP are normal. 2 view chest x-ray viewed by myself as well as radiology shows bilateral infiltrates. Patient does have some mild improvement after receiving a DuoNeb. Will start IV fluids as I suspect this is more of an infectious process and he has mild renal insufficiency and I do not think this is primary cardiac in nature. Started on IV Rocephin and azithromycin. Chart review shows that patient previously been on doxycycline on 04/10 for 7 days. Case discussed with admitting physician, Dr. Baeza. She does request order left lateral decubitus x-ray as well to make sure he does not have any significant effusion that would require thoracentesis. Patient agreeable with plan of care. Patient haylie hemodynamic stable in the ER. Is also given a dose of 60 mg IV Solu-Medrol and Tylenol in the emergency room. Lab Data Attestation: I reviewed the patient's lab results. Labs: Laboratory Results - last 24 hr 04/27/24 15:20 WBC 11.0 RBC 3.96 L Hgb 11.3 L Hct 35.6 L MCV 89.9 MCH 28.5 MCHC 31.7 L RDW Std Deviation 43.2 RDW Coeff of Laurel 13.2 Plt Count 179 MPV 11.1 Immature Gran % (Auto) 0.500 Neut % (Auto) 77.9 H Lymph % (Auto) 11.8 L [place] % (Auto) 9.0 Eos % (Auto) 0.5 Baso % (Auto) 0.3 Absolute Neuts (auto) 8.5 H Absolute Lymphs (auto) 1.29 Nucleated RBC % 0 Sodium 138 Potassium 3.4 L Chloride 102 Carbon Dioxide 29.0 Anion Gap 7 BUN 23 H Creatinine 1.35 H Estim Creat Clear Calc 51.69 Est GFR (MDRD) Af Amer 65 Est GFR (MDRD) Non-Af 54 L BUN/Creatinine Ratio 17.0 Glucose 113 H Lactic Acid 1.5 Calcium 9.1 Troponin I High Sens 21 B-Natriuretic Peptide 58.1 Radiography Chest X-Ray - ED: 2 View, Read by ED Physician, Read by Radiologist, Right Infiltrate and Left Infiltrate Diagnostic Testing: Clinical Impression(s) from Imaging Studies Chest X-Ray 04/27/24 15:30 IMPRESSION: Persistent bilateral pulmonary infiltrates worse in the left lung base with the superimposed ulnar scarring and calcified left pleural plaques. Electronically Signed: Dutch Biggs MD at 15:42 EDT , Rhythm Strip Rhythm Strip: Sinus Rhythm Rate: 93 Ectopy: None EKG Initial EKG: Attestation: I personally reviewed and interpreted this EKG as follows: Interpretation: Sinus Rhythm Comments: Normal sinus rhythm at a rate of 93 bpm with PACs Left axis deviation Pulmonary disease pattern Normal ST segments Prior EKG tracings: not available for review Prior: No Prior Management Discussion w/another healthcare provider: Hospitalist Discharge Plan Triage Chief Complaint: Shortness of Breath ED Provider: Silvia Nichols Dx/Rx/DC Orders Clinical Impression: Bilateral pneumonia, Acute hypoxic respiratory failure, Failure of outpatient treatment Prescriptions: No Action chlorthalidone 25 mg tablet 25 mg PO DAILY levothyroxine [Synthroid] 50 mcg tablet 50 mcg PO DAILY furosemide 20 mg tablet 20 mg PO DAILY metoprolol succinate 25 mg tablet extended release 24 hr 25 mg PO DAILY albuterol sulfate 90 mcg/actuation HFA aerosol inhaler 2 puff INHALATION 4X/DAY PRN PRN (Reason: cough) valsartan 160 mg tablet 160 mg PO DAILY atorvastatin 20 mg tablet 20 mg PO DAILY flecainide 50 mg tablet 50 mg PO BID codeine-guaifenesin 10-100 mg/5 mL liquid 10 ml PO 4X/DAY PRN PRN (Reason: cough) Primary Care Provider: Martin Pruitt Referrals: Martin Pruitt MD [Primary Care Provider] - Print Language: Luxembourger Disposition Disposition: Acute Care Hospital [facility]
--- NOTE | 2024-04-27 15:30 | RAD_ITS ---
STUDY: X-RAY CHEST REASON FOR EXAM: Male, 83 years old. Cough, SOB TECHNIQUE: PA and lateral views of the chest. COMPARISON: Comparison is made with prior study dated April 14, 2024. FINDINGS: EKG electrodes are seen. Stable bilateral patchy infiltrates worse at the left lung base. This is superimposed on chronic interstitial scarring. Calcified left pleural plaques. There is mild cardiac enlargement. Normal mediastinum and mary lou. Normal visualized pulmonary arteries. There is atherosclerotic calcification of the aortic arch with tortuosity. There are diffuse degenerative changes of the visualized thoracic spine. Bilateral shoulder replacement. There is no demonstrated abnormality of the visualized soft tissue structures of the upper abdomen. RAD/Chest PA and Lateral IMPRESSION: Persistent bilateral pulmonary infiltrates worse in the left lung base with the superimposed ulnar scarring and calcified left pleural plaques. Electronically Signed: Dutch Biggs MD at 15:42 EDT ,
[2024-04-27 15:36] LABS: Absolute Lymphocyte Count 1.29 X10^3/uL (0.83-4.51); Absolute Neutrophil Count 8.5 X10^3/uL (2.0-7.7); Basophil# 0.03 X10^3/uL; Basophil% 0.3 % (0-1); Eosinophil# 0.05 X10^3/uL; Eosinophils% 0.5 % (0-5); Hematocrit 35.6 % (40-54); Hemoglobin 11.3 g/dL (13.0-16.5); Lymphocyte # 1.29 X10^3/ul (0.83-4.51); Lymphocyte % 11.8 % (19-41); Mean Corp Hgb Conc 31.7 g/dL (32-36); Mean Corpuscular Hgb 28.5 pg (27.0-32.0); Mean Corpuscular Volume 89.9 fL (80-94); Mean Platelet Vol. 11.1 fl (6.2-12.0); Monocyte# 0.99 X10^3/uL; NRBC Flagged by Analyzer 0 % (0-5); Neutrophil # 8.54 X10^3/uL (2.7-7.7); Neutrophil % 77.9 % (47-70); Platelet Count 179 K/mm3 (150-450); RBC Distribution Width CV 13.2 % (11.6-14.6); RBC Distribution Width SD 43.2 fl (35.1-43.9); Red Blood Count 3.96 M/mm3 (4.6-6.2)
[2024-04-27] MEDS: Ipratropium/Albuterol Sulfate 3 ML AMPUL.NEB INHALATION ×2 (15:42→19:11)
[2024-04-27 16:00] LABS: Anion Gap 7 (5-15); BUN 23 mg/dL (7-18); Calcium,Total 9.1 mg/dL (8.5-10.1); Chloride 102 mmol/L (98-107); Creatinine, Serum 1.35 mg/dL (0.70-1.30); EST Glomerular Filtration Rate 54 mL/min (>60); Est Glom Filt Rate - Afr Amer 65 mL/min (>60); Estimated Creatinine Clearance 51.69 ml/min; Glucose 113 mg/dL (74-106); Potassium 3.4 mmol/L (3.5-5.1); Sodium Level 138 mmol/L (136-145); Troponin-I HS 21 pg/mL (3.0-78.0)
[2024-04-27 16:01] LABS: Lactic Acid 1.5 mmol/L (0.4-1.9)
[2024-04-27 16:32] LABS: BNP,B-Type NATRIURETIC PEPTIDE 58.1 pg/mL (0-100)
[2024-04-27] MEDS: Ceftriaxone 1 GM/50 ML BAG IV (16:46)
--- NOTE | 2024-04-27 16:58 | RAD_ITS ---
STUDY: X-RAY CHEST REASON FOR EXAM: Male, 83 years old. effusion -- Left lateral decubitus TECHNIQUE: Left lateral decubitus view COMPARISON: None. FINDINGS: The lungs are clear and expanded. There is no demonstrated pleural abnormality. There is moderate cardiac enlargement. Normal mediastinum and mary lou. Normal visualized pulmonary arteries. Normal visualized aortic arch and descending thoracic aorta. Normal visualized thoracic spine. Normal visualized ribs, clavicles, and shoulders. There is no demonstrated abnormality of the visualized soft tissue structures of the upper abdomen. RAD/Special CXR (Obl/Decub/A/L) IMPRESSION: No sizable left-sided pleural effusion. Electronically Signed: Johnny Guerrero MD at 17:25 EDT ,
--- NOTE | 2024-04-27 17:06 | HP.PCM.HOS_ITS ---
HPI - General General Date of Admission: 04/27/24 Date of Service: 04/27/24 Chief Complaint: Shortness of breath HPI Narrative NED ARMSTRONG, is a 83 M who presented to the emergency department at [facility] on 04/27/2024 due to worsening shortness of breath, cough and hypoxia. Patient has been dealing with a respiratory infection for about 3 weeks now. He saw his primary care physician initially and was placed on doxycycline. He completed this course and he indicated he felt a little bit better after the antibiotic but then shortly thereafter started to worsen again at which time he was prescribed prednisone and albuterol as well as cough medicine with codeine in it. He was also given a diuretic. He indicated despite this he had worsening symptoms and had a follow-up with his primary care physician today. At that time he was noted to have an oxygen saturation of 85% on room air in the office so they sent him into the emergency department for further evaluation. Patient reports that he has had significant cough and now having sputum production. He indicated low-grade fevers at home and some mild nausea. He denies any chest pain, shortness of breath, orthopnea or PND. He has not had any abdominal pain, nausea, vomiting or diarrhea. Patient did indicate he had 1 previous episode of A-fib and takes flecainide for this but is not anticoagulated. 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 He does admit to a remote history of tobacco abuse but is not oxygen dependent at baseline. Vital signs on presentation showed a temperature of 99, respiratory rate was 25, blood pressure was 141/62 with oxygen saturations at 92% on 3 L nasal cannula. As noted he was 85% on room air as an outpatient. Tmax in the emergency department was 100 degrees. His CBC showed a normal white count at 11,000 however he did have a significant left shift with a 77.9% neutrophilia. His chemistry panel showed mild hypokalemia with potassium of 3.4 and an elevated BUN and creatinine at 23 and 1.35 respectively with a baseline of 0.75-1.1. His glucose was 113. Lactic acid was normal at 1.5. Troponin was 21 and BNP was 58.1. EKG showed normal sinus rhythm with a few PACs and left axis deviation consistent with pulmonary disease but no ST-T wave segments concerning for acute ischemia. Chest x-ray showed bilateral pulmonary infiltrates worse than previous assessment on 04/14/2024 and what appeared to be a left oral effusion however a left lateral decubitus performed and there is no layering. He was treated with gentle hydration, ceftriaxone and azithromycin in the emergency department and admission was requested. [facility] Medical History Aortic valve stenosis, nonrheumatic Diastolic dysfunction Prostate cancer Anemia Hypothyroidism Morbid obesity HTN (hypertension) Atrial fibrillation Hyperlipidemia Home Medications ?Medication ?Instructions ?Recorded ?Last Taken ?Type albuterol sulfate 90 mcg/actuation 2 puff inhalation 4X/DAY PRN PRN 04/27/24 Unknown History aerosol inhaler cough atorvastatin 20 mg tablet 20 mg PO DAILY 04/27/24 Unknown History chlorthalidone 25 mg tablet 25 mg PO DAILY 04/27/24 Unknown History codeine 10 mg-guaifenesin 100 mg/5 10 ml PO 4X/DAY PRN PRN cough 04/27/24 Unknown History mL oral liquid flecainide 50 mg tablet 50 mg PO BID 04/27/24 Unknown History furosemide 20 mg tablet 20 mg PO DAILY 04/27/24 Unknown History levothyroxine 50 mcg tablet 50 mcg PO DAILY 04/27/24 Unknown History (Synthroid) metoprolol succinate 25 mg 25 mg PO DAILY 04/27/24 Unknown History tablet,extended release 24 hr valsartan 160 mg tablet 160 mg PO DAILY 04/27/24 Unknown History Allergy/AdvReac Type Severity Reaction Status Date / Time No Known Allergies Allergy Verified 04/27/24 14:43 no significant family history Surgical History History of left shoulder replacement History of right shoulder replacement History of carpal tunnel surgery of left wrist H/O prostatectomy Social History (Updated 04/27/24 @ 20:[address] Socorro Baeza DO) household members: family housing: house current occupational status: retired Smoking Status: Former smoker alcohol intake: never substance use type: does not use Vital Signs Vital Signs Vital Signs: 04/27/24 14:43 04/27/24 14:43 04/27/24 15:15 Temperature 99 F Temperature Source Temporal Pulse Rate 87 Respiratory Rate 25 H Respiratory Effort Respiratory Depth Respiratory Pattern Blood Pressure 141/62 H Blood Pressure Mean 88 Pulse Ox 92 92 Oxygen Delivery Method Nasal Cannula Nasal Cannula Nasal Cannula Oxygen Flow Rate (L/min) 3 3 3 04/27/24 15:18 04/27/24 15:42 04/27/24 15:43 Temperature Temperature Source Pulse Rate 89 89 Respiratory Rate 19 H 25 H Respiratory Effort Short of Breath Labored Respiratory Depth Shallow Respiratory Pattern Tachypnea Blood Pressure 111/89 H Blood Pressure Mean 96 Pulse Ox 92 Oxygen Delivery Method Nasal Cannula Oxygen Flow Rate (L/min) 3 04/27/24 15:45 04/27/24 15:47 04/27/24 16:00 Temperature 99 F 98.2 F Temperature Source Temporal Temporal Pulse Rate 89 86 Respiratory Rate 25 H 16 Respiratory Effort Respiratory Depth Respiratory Pattern Blood Pressure 111/89 H 153/57 H Blood Pressure Mean 96 89 Pulse Ox 92 92 92 Oxygen Delivery Method Nasal Cannula Nasal Cannula Nasal Cannula Oxygen Flow Rate (L/min) 3 3 04/27/24 16:42 Temperature 100.0 F H Temperature Source Oral Pulse Rate Respiratory Rate Respiratory Effort Respiratory Depth Respiratory Pattern Blood Pressure Blood Pressure Mean Pulse Ox Oxygen Delivery Method Oxygen Flow Rate (L/min) Weight Weight: 117.2 kg Body Mass Index (BMI) 41.7 Physical Exam Const alert, oriented x3 and well nourished; Negative for average body habitus or healthy appearing Constitutional Narrative: Morbidly obese, ill appearing, older, white male, sitting up in bed, looks sick but not toxic, at bedside, interacts appropriately with intermittent coughing General Appearance: cooperative HEENT normocephalic and moist oral mucous membranes HEENT Narrative: Dentition is fair for age, Mallampati is 3, no thrush, mild hearing loss Eyes PERRL, EOMs intact bilaterally and conjunctivae normal Eyes Narrative: No scleral icterus, trachea midline, no thyroid enlargement, neck is short and thick Neck no lymphadenopathy and supple Resp no retractions and no use of accessory muscles Resp Narrative: Crackles at bilateral bases with tachypnea noted but no signs of extremis, scattered end expiratory wheeze Auscultation: wheezes; Negative for rales or rhonchi Cardio regular rhythm, S1 normal heart sound, S2 normal heart sound, no murmurs, no rub, no gallops and no clicks Cardio Narrative: Mild tachycardia GI normal to inspection, nondistended, normoactive bowel sounds, soft to palpation and non-tender GI Narrative: Large protuberant abdomen Extremity Extremity Narrative: Trace to 1+ bilateral lower extremity pitting edema-patient states this is chronic, no clubbing or cyanosis Skin skin turgor normal, no jaundice, no petechiae and no mottling Neuro oriented x3, moves all extremities and no focal motor deficits Speech: speech normal Psych affect normal Psych Narrative: Eye contact is good and patient interacts appropriately Results Lab / Micro Data 04/27/24 15:20 04/27/24 15:20 Labs: Laboratory Results - last 24 hr 04/27/24 15:20: WBC 11.0, RBC 3.96 L, Hgb 11.3 L, Hct 35.6 L, MCV 89.9, MCH 28.5, MCHC 31.7 L, RDW Std Deviation 43.2, RDW Coeff of [place]urel 13.2, Plt Count 179, MPV 11.1, Immature Gran % (Auto) 0.500, Neut % (Auto) 77.9 H, Lymph % (Auto) 11.8 L, [place] % (Auto) 9.0, Eos % (Auto) 0.5, Baso % (Auto) 0.3, Absolute Neuts (auto) 8.5 H, Absolute Lymphs (auto) 1.29, Nucleated RBC % 0, Sodium 138, P otassium 3.4 L, Chloride 102, Carbon Dioxide 29.0, Anion Gap 7, BUN 23 H, C reatinine 1.35 H, Estim Creat Clear Calc 51.69, Est GFR (MDRD) Af Amer 65, Est GFR (MDRD) Non-Af 54 L, BUN/Creatinine Ratio 17.0, Glucose 113 H, Lactic Acid 1.5, Calcium 9.1, Troponin I High Sens 21, B-Natriuretic Peptide 58.1 Imaging Radiology Impression Chest X-Ray 04/27/24 15:30 IMPRESSION: Persistent bilateral pulmonary infiltrates worse in the left lung base with the superimposed ulnar scarring and calcified left pleural plaques. Electronically Signed: Dutch Biggs MD at 15:42 EDT , Assessment & Plan Assessment/Plan (1) Acute hypoxic respiratory failure: (2) Bilateral pneumonia: (3) Failure of outpatient treatment: (4) Hypokalemia: (5) Elevated serum creatinine: (6) Dehydration: (7) Pleural effusion, left: PLAN: Plan Acute hypoxic respiratory failure secondary to pneumonia -Patient is not oxygen dependent at baseline -Requiring 3 L at 92% on admission -Wean oxygen as able -Nocturnal BiPAP with history of SAMANTHA--> to bring in home unit -Failed outpatient doxycycline -Significant wheeze on exam so we will dose Solu-Medrol 40 every 8 -Check COVID PCR and respiratory viral panel -Check sputum culture -Check strep pneumo Legionella antigens -Blood culture pending -Will give Levaquin for broader coverage and pseudomonal coverage 750 mg daily -Aggressive pulmonary toilet with scheduled and as needed nebulizers -Incentive spirometry -Acapella -Mucinex 1200 twice daily Left pleural effusion -Appeared larger on AP of chest however decubitus done and no significant effusion noted -Monitor clinically Elevated serum creatinine secondary to suspected dehydration -Current baseline unknown -Will hold diuretics for now including chlorthalidone and Lasix -Very gentle hydration with LR at 75 cc/h x 1 bag -repeat lab in a.m. Hypokalemia -P.o. potassium replacement -Recheck lab in a.m. -Check a.m. magnesium and phosphorus level Essential HTN/HPL -Continue home valsartan -Continue home metoprolol -Hold home Lasix and chlorthalidone due to mild dehydration -Continue home atorvastatin History of A-fib -Per patient isolated one-time event -Significant workup previously by cardiology with no other events noted -continue home flecainide -Continue home beta-beverley -Patient is not anticoagulated -Will monitor on telemetry as pulmonary infection could increase his risk for recurrent atrial fibrillation History of prostate cancer -Previous prostatectomy -No current issues Osteoarthritis -Patient with previous bilateral shoulder arthroplasty -As needed Tylenol available Obstructive sleep apnea -Patient wears BiPAP at home - to bring in home unit Morbid obesity -BMI 41.2 -Complicates treatment, prognosis, outcomes -Recommend weight loss DVT prophylaxis -Subcu Lovenox twice daily 40 mg CODE STATUS -Full code as verified at the time of admission Charges/Coding Visit Charges Inpatient E&M: 41204 Init Hosp L3
[2024-04-27] MEDS: MethylPREDNISolone 125 MG/2 ML Vial 60 MG IV (17:35)
[2024-04-27] MEDS: Azithromycin 500 MG in Dextrose 5%-Water (250mL Bag) 250 ML 250 MG IV (17:35)
[2024-04-27] MEDS: 0.9% Normal Saline (1000mL) 1,000 ML 150 ML IV (17:35)
[2024-04-27] MEDS: Acetaminophen 325 MG Tablet 650 MG PO (17:35)
[2024-04-27] MEDS: Lactated Ringers 1,000 ML 75 ML IV (19:07)
[2024-04-27] MEDS: Potassium Chloride Oral Tablet 20 MEQ 40 MEQ PO (21:29)
[2024-04-27] MEDS: Enoxaparin 40 MG/0.4 ML Syringe SC (21:30)
[2024-04-27] MEDS: guaiFENesin 1,200 MG Tablet 1200 MG PO (21:30)
[2024-04-27] MEDS: Flecainide 100 MG Tablet 50 MG PO (22:19)
--- NOTE | 2024-04-27 22:47 | CPS ---
Patient refused PAP therapy. Wanting to wear just O2 for the night. Patient on 5L and CPOX monitor in room.
[2024-04-27 23:05] LABS: M R Staph aureus DNA By PCR Negative (Negative); Probe Check PASS; Specimen Processing Control PASS
[2024-04-27] MEDS: MELATONIN 3 MG TABLET PO (23:16)
[2024-04-28] VITALS (15 sets, daily range): BP systolic 110–158; BP diastolic 61–76; PULSE 65–82; RESP 17–23; TEMP 36.4–37; O2SAT 90–96; BMI 41.0
[2024-04-28] MEDS: Levothyroxine 50 MCG Tablet PO (05:44)
--- NOTE | 2024-04-28 06:55 | PN.HOSP_ITS ---
Reason for Visit Reason for Visit: Diagnoses Dehydration (04/27/24) Hypokalemia (04/27/24) Pneumonia, unspecified organism (04/27/24) Pleural effusion, not elsewhere classified (04/27/24) Acute respiratory failure with hypoxia (04/27/24) Other specified abnormal findings of blood chemistry (04/27/24) Other specified health status (04/27/24) Subjective Subjective Breathing better. Objective Data Objective Data Vital Signs: Vital Signs Temp Pulse Resp BP Pulse Ox O2 Del Method O2 Flow Rate 36.4 C L 70 20 H 158/76 H 92 Nasal Cannula 5 04/28/24 05:37 04/28/24 05:37 04/28/24 05:43 04/28/24 05:37 04/28/24 05:43 04/28/24 05:43 04/28/24 05:43 Oxygen Flow Rate (L/min) 5 Oxygen Delivery Method Nasal Cannula Weight: 115.81 kg Body Mass Index (BMI) 41.0 Intake & Output: Intake and Output for Last 24 Hours 04/26/24 04/27/24 04/28/24 23:59 23:59 23:59 Intake Total 517.5 / 717.5 400 / 400 Balance 517.5 / 717.5 400 / 400 Lab / Micro Data 04/28/24 07:01 04/28/24 07:01 Labs: Laboratory Results - last 24 hr 04/27/24 15:20: WBC 11.0, RBC 3.96 L, Hgb 11.3 L, Hct 35.6 L, MCV 89.9, MCH 28.5, MCHC 31.7 L, RDW Std Deviation 43.2, RDW Coeff of [place] 13.2, Plt Count 179, MPV 11.1, Immature Gran % (Auto) 0.500, Neut % (Auto) 77.9 H, Lymph % (Auto) 11.8 L, [place] % (Auto) 9.0, Eos % (Auto) 0.5, Baso % (Auto) 0.3, Absolute Neuts (auto) 8.5 H, Absolute Lymphs (auto) 1.29, Nucleated RBC % 0, Sodium 138, P otassium 3.4 L, Chloride 102, Carbon Dioxide 29.0, Anion Gap 7, BUN 23 H, C reatinine 1.35 H, Estim Creat Clear Calc 51.69, Est GFR (MDRD) Af Amer 65, Est GFR (MDRD) Non-Af 54 L, BUN/Creatinine Ratio 17.0, Glucose 113 H, Lactic Acid 1.5, Calcium 9.1, Troponin I High Sens 21, B-Natriuretic Peptide 58.1 04/27/24 19:40: MRSA (PCR) Negative Micro: Microbiology 04/27/24 22:10 Urine, Clean Catch Legionella Antigen - Final 04/27/24 22:10 Urine, Clean Catch Streptococcus pneumoniae Antigen (M - Final 04/27/24 19:20 Mucosa - Nasopharyngeal Respiratory Panel (PCR) - Final 04/27/24 19:20 Mucosa - Nasopharyngeal Coronavirus COVID-19 PCR - Final 04/27/24 16:42 Nasal Secretion SARS-CoV-2 Antigen (Rapid) - Final Radiography Diagnostic Testing: Radiology Impression Chest X-Ray 04/27/24 15:30 IMPRESSION: Persistent bilateral pulmonary infiltrates worse in the left lung base with the superimposed ulnar scarring and calcified left pleural plaques. Electronically Signed: Ducth Biggs MD at 15:42 EDT , Chest X-Ray 04/27/24 16:58 IMPRESSION: No sizable left-sided pleural effusion. Electronically Signed: Johnny Guerrero MD at 17:25 EDT , Rhythm Strip Rhythm Strip: Sinus Rhythm Rate: 93 Ectopy: None Physical Exam Const alert and no apparent distress HEENT head/scalp atraumatic and moist oral mucous membranes Resp normal respiratory effort, no retractions and no use of accessory muscles Resp Narrative: bibasilar crackles. Cardio regular rate and regular rhythm GI normal to inspection, nondistended, normoactive bowel sounds and soft to palpation Neuro Sensorium / Orientation: awake and alert Assessment & Plan Assessment/Plan (1) Acute hypoxic respiratory failure: (2) Bilateral pneumonia: (3) Failure of outpatient treatment: (4) Hypokalemia: (5) Elevated serum creatinine: (6) Dehydration: (7) Pleural effusion, left: PLAN: Plan Acute hypoxic respiratory failure * 85% at the office, sent to the ED RR 25, placed 5 ltiers of oxygen to maintain oxygenation. Oxygen able to be weaned down. * 2/2 pneumonia * on BDs, methylprednisone Suspected Pneumococcal pneumonia * strep, legionella, COVID 19, resp panel negative. Blood culture, sputum culture pending. * on levofloxacin. Failed outpt treatment with doxycycline. * pulmonary toilet * CT showed bilateral infiltrates LLL pleural effusion * ruled out. No effusion noted on CT Hypokalemia * replaced Chronic conditions: * Essential HTN/HPL-Continue home valsartan-Continue home metoprolol-Hold home Lasix and chlorthalidone due to mild dehydration-Continue home atorvastatin * History of A-fib-Per patient isolated one-time event-Significant workup previously by cardiology with no other events noted-continue home flecainide- Continue home wbwa-ufxtajr-Mvkenfs is not anticoagulated-Will monitor on telemetry as pulmonary infection could increase his risk for recurrent atrial fibrillation * History of prostate cancer-Previous prostatectomy-No current issues * Osteoarthritis-Patient with previous bilateral shoulder arthroplasty-As needed Tylenol available * Obstructive sleep apnea-Patient wears BiPAP at home- to bring in home unit * Morbid obesity-BMI 41.2-Complicates treatment, prognosis, outcomes-Recommend weight loss VTE prophylaxis: LMWH CODE STATUS-Full code as verified at the time of admission Charges/Coding Visit Charges Inpatient E&M: 57522 Subs Hosp L2
[2024-04-28] MEDS: Ipratropium/Albuterol Sulfate 3 ML AMPUL.NEB INHALATION ×3 (07:10→19:45)
[2024-04-28 08:00] LABS: Absolute Lymphocyte Count 0.68 X10^3/uL (0.83-4.51); Absolute Neutrophil Count 7.7 X10^3/uL (2.0-7.7); Basophil# 0.01 X10^3/uL; Basophil% 0.1 % (0-1); Hematocrit 34.9 % (40-54); Hemoglobin 11.1 g/dL (13.0-16.5); Lymphocyte # 0.68 X10^3/ul (0.83-4.51); Lymphocyte % 7.9 % (19-41); Mean Corp Hgb Conc 31.8 g/dL (32-36); Mean Corpuscular Hgb 28.5 pg (27.0-32.0); Mean Corpuscular Volume 89.7 fL (80-94); Mean Platelet Vol. 11.5 fl (6.2-12.0); Monocyte# 0.18 X10^3/uL; Monocyte% 2.1 % (0-10); NRBC Flagged by Analyzer 0 % (0-5); Neutrophil # 7.72 X10^3/uL (2.7-7.7); Neutrophil % 89.3 % (47-70); Platelet Count 175 K/mm3 (150-450); RBC Distribution Width CV 13.2 % (11.6-14.6); RBC Distribution Width SD 43.1 fl (35.1-43.9); Red Blood Count 3.89 M/mm3 (4.6-6.2); White Blood Count 8.6 K/mm3 (4.4-11.0)
[2024-04-28 08:21] LABS: ALB/GLOB Ratio 0.6 RATIO (0.9-2.4); AST(SGOT) 18 U/L (15-37); Alanine Aminotransfer ALT/SGPT 25 U/L (16-61); Albumin, Serum 2.5 g/dL (3.2-5.0); Alkaline Phosphatase 114 U/L (45-117); Anion Gap 6 (5-15); BUN 25 mg/dL (7-18); BUN/Creat Ratio 21.9 RATIO (10-20); Calcium,Total 8.8 mg/dL (8.5-10.1); Chloride 106 mmol/L (98-107); Creatinine, Serum 1.14 mg/dL (0.70-1.30); EST Glomerular Filtration Rate 65 mL/min (>60); Est Glom Filt Rate - Afr Amer 79 mL/min (>60); Estimated Creatinine Clearance 60.81 ml/min; Globulin 4.1 g/dL (2.2-4.2); Glucose 174 mg/dL (74-106); Magnesium 2.2 mg/dL (1.6-2.6); Potassium 3.7 mmol/L (3.5-5.1); Protein, Total 6.6 g/dL (6.4-8.2); Sodium Level 138 mmol/L (136-145)
--- NOTE | 2024-04-28 08:56 | CT_ITS ---
STUDY: CTA CHEST REASON FOR EXAM: Male, 83 years old. Pneumonia RADIATION DOSAGE (If Supplied By Facility): CTDIvol = ( 16.22 ) mGy, DLP = ( 570.72 ) mGycm TECHNIQUE: The examination was performed with the intravenous administration of IV 100mL Isovue-370. Post-processing of the angiographic images was performed, with multiplanar reformation and 3D reconstruction. Individualized dose optimization techniques were used for this CT. COMPARISON: Comparison is made with prior chest radiograph dated April 27, 2024. FINDINGS: Normal enhancement of the main pulmonary artery and right and left pulmonary arteries. Normal enhancement of the bilateral peripheral pulmonary arteries. There is no demonstrated pulmonary embolism. There is atherosclerotic calcification of the aortic arch with tortuosity. There is no demonstrated aortic dissection. There are calcifications of the coronary arteries. Normal mediastinum. Normal hilar regions. Normal visualized trachea and bronchi. Hyperinflation. Increased linear markings with areas of confluence in the posterior aspect of the lingular segment of the left upper lobe abutting the left minor fissure in keeping with the pulmonary infiltrate. There is also evidence of a localized airspace disease in the lower lobes more prominent at the left lung base. Scattered calcified left pleural plaques. Normal chest wall structures. There are degenerative changes of thoracic spine. Normal visualized upper abdomen. CT/CTA Chest W/WO Contrast IMPRESSION: No evidence of pulmonary embolism. Bilateral patchy infiltrates worse in the left hemithorax. Electronically Signed: Dutch Biggs MD at 10:36 EDT ,
[2024-04-28] MEDS: guaiFENesin 1,200 MG Tablet 1200 MG PO ×2 (09:53→20:19)
[2024-04-28] MEDS: Flecainide 100 MG Tablet 50 MG PO ×2 (09:54→20:20)
[2024-04-28] MEDS: Losartan Potassium 50 MG Tablet PO (09:55)
[2024-04-28] MEDS: Metoprolol(XL)Succ 25 MG Tablet PO (09:55)
[2024-04-28] MEDS: Atorvastatin Calcium 20 MG Tablet PO (09:55)
[2024-04-28] MEDS: Enoxaparin 40 MG/0.4 ML Syringe SC ×2 (09:56→20:19)
[2024-04-28] MEDS: levoFLOXacin IV 750 MG in Empty Viaflex Q24 100 MG IV (10:01)
--- NOTE | 2024-04-28 10:20 | CASEMGMT ---
LOBO ALMANZA Assessment Face to Face with patient for initial transition planning/care coordination assessment. LOBO ALMANZA introduced self and role at [facility], pt voices understanding. Pt is A&Ox4 and is resting comfortably in bed and is calm. Care providers, pharmacy, and demographics verified. 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 ADLs/IADLs: Ind Transportation: Self, . Denies concerns DME: BiPAP @ HS with no additional oxygen. BP Monitor. Pt was educated about purchasing option for a Pulse Ox and states that he can afford one. Pt is currently on additional oxygen and does not normally wear at home. A verbal list of local in-network DME companies provided to the pt at this time. Pt prefers [employer] for potential home oxygen needs. HHC/SNF: States Hx of HHC in [place] after shoulder Sx. Denies SNF history or needs Pt?s goal: Home Plan: Home with potential home oxygen. 6-Click is 24. PT is pending. Pt states that he does not need or want HHC, OP therapy, or SNF. Pt states that he feels safe discharging home with his once he medically ready. CM to follow oxygen demands. Karen Andrade RN, CM
--- NOTE | 2024-04-28 15:52 | CASEMGMT ---
Social Work SW met with pt to discuss advance directives.? Pt confirms he has completed a living will and health care POA naming Sameera, .? Pt notified that documents are not on file at [facility] and SW requested they be brought in for scanning into the EMR.? EDUARDO Hendrix
[2024-04-28] MEDS: MELATONIN 3 MG TABLET PO (21:34)
[2024-04-29] VITALS (13 sets, daily range): BP systolic 123–177; BP diastolic 66–81; PULSE 63–89; RESP 16–20; TEMP 36.4–36.7; O2SAT 87–96; BMI 40.9
[2024-04-29] MEDS: Ipratropium/Albuterol Sulfate 3 ML AMPUL.NEB INHALATION ×3 (00:56→12:59)
[2024-04-29] MEDS: Acetaminophen 325 MG Tablet 650 MG PO (02:51)
[2024-04-29] MEDS: Levothyroxine 50 MCG Tablet PO (06:01)
[2024-04-29] MEDS: Metoprolol(XL)Succ 25 MG Tablet PO (06:06)
[2024-04-29] MEDS: Enoxaparin 40 MG/0.4 ML Syringe SC (09:48)
[2024-04-29] MEDS: Flecainide 100 MG Tablet 50 MG PO (09:48)
[2024-04-29] MEDS: Atorvastatin Calcium 20 MG Tablet PO (09:48)
[2024-04-29] MEDS: guaiFENesin 1,200 MG Tablet 1200 MG PO (09:48)
[2024-04-29] MEDS: Losartan Potassium 50 MG Tablet PO (09:48)
[2024-04-29] MEDS: levoFLOXacin IV 750 MG in Empty Viaflex Q24 100 MG IV (10:16)
--- NOTE | 2024-04-29 14:19 | CASEMGMT ---
Pt qualifies for home oxygen. Referral sent to [facility] via careport at this time. RN CM into pt room, pt dressed and ready for dc. He is aware that his oxygen will be delivered to the room. Reviewed homegoing oxygen information. Pt is aware a concentrator will be delivered to his home and that he needs to call once home to get this delivered. Pt plans on going to [facility] to get a pox. Pt denies need for HH at this time. Pt states he just wants to go home.
--- NOTE | 2024-04-29 14:23 | DCINST_ITS ---
Discharge Instructions Diet Discharge Diet: Low fat / Low cholesterol Activity Discharge Activity: Return to Normal Activity Dressing / Incision Call your doctor if you observe: Fever of 101 or Higher, Shortness of breath, Dizziness, Fainting spells, Swelling in the ankles, Chest pain and Increased palpitations (irregular heartbeat) Follow Up Care Test Results: Test results from this visit will be discussed in further detail at your follow- up appointment, if applicable. Discharge Plan Admission Admit Date/Time: 04/27/24 16:55 Attending Provider: Juliocesar Phelps Primary Care Provider: Martin Pruitt Consulting Providers: Socorro Baeza; Bill Crouch Discharge Orders/Prescriptions Prescriptions: New levofloxacin 750 mg tablet 750 mg PO DAILY Qty: 5 0RF Continued chlorthalidone 25 mg tablet 25 mg PO DAILY levothyroxine [Synthroid] 50 mcg tablet 50 mcg PO DAILY furosemide 20 mg tablet 20 mg PO DAILY metoprolol succinate 25 mg tablet extended release 24 hr 25 mg PO DAILY albuterol sulfate 90 mcg/actuation HFA aerosol inhaler 2 puff INHALATION 4X/DAY PRN PRN (Reason: cough) valsartan 160 mg tablet 160 mg PO DAILY atorvastatin 20 mg tablet 20 mg PO DAILY flecainide 50 mg tablet 50 mg PO BID codeine-guaifenesin 10-100 mg/5 mL liquid 10 ml PO 4X/DAY PRN PRN (Reason: cough) Referrals / Follow Up: Martin Pruitt MD [Primary Care Provider] - Within 1 Week Disposition Disposition (needs filled in before D/C Order can be placed): Home, Self Care
--- NOTE | 2024-04-29 14:55 | NURSING ---
pt pox found at 90% on 1l, turned to 2l and quickly yelitza to 93
--- NOTE | 2024-04-29 15:14 | DS.PCM_ITS ---
Providers Date of Admission: 04/27/24 Primary Care Physician: Dr. Martin Pruitt MD Reason For Visit: ACUTE HYPOXIC RESPIRATORY FAILURE 2/2PNA Diagnosis Discharge Diagnosis (1) Acute hypoxic respiratory failure: Status: Acute Code(s): J96.01 - Acute respiratory failure with hypoxia (2) Bilateral pneumonia: Status: Acute Code(s): J18.9 - Pneumonia, unspecified organism (3) Failure of outpatient treatment: Status: Acute Code(s): Z78.9 - Other specified health status (4) Hypokalemia: Status: Acute Code(s): E87.6 - Hypokalemia (5) Elevated serum creatinine: Status: Acute Code(s): R79.89 - Other specified abnormal findings of blood chemistry (6) Dehydration: Status: Acute Code(s): E86.0 - Dehydration (7) Pleural effusion, left: Status: Acute Code(s): J90 - Pleural effusion, not elsewhere classified Medications at Discharge Home Medications albuterol sulfate 90 mcg/actuation aerosol inhaler 2 puff inhalation 4X/DAY PRN PRN cough 04/27/24 atorvastatin 20 mg tablet 20 mg PO DAILY 04/27/24 chlorthalidone 25 mg tablet 25 mg PO DAILY 04/27/24 codeine 10 mg-guaifenesin 100 mg/5 mL oral liquid 10 ml PO 4X/DAY PRN PRN cough 04/27/24 flecainide 50 mg tablet 50 mg PO BID 04/27/24 furosemide 20 mg tablet 20 mg PO DAILY 04/27/24 levothyroxine 50 mcg tablet (Synthroid) 50 mcg PO DAILY 04/27/24 metoprolol succinate 25 mg tablet,extended release 24 hr 25 mg PO DAILY 04/27/24 valsartan 160 mg tablet 160 mg PO DAILY 04/27/24 levofloxacin 750 mg tablet 750 mg PO DAILY #5 tabs 04/29/24 Hospital Course Operations None Procedures None Summary of Care Provided Minutes Spent on Discharge: 33 Hospital Course: Per HPI: NED ARMSTRONG, is a 83 M who presented to the emergency department at [facility] on 04/27/2024 due to worsening shortness of breath, cough and hypoxia. Patient has been dealing with a respiratory infection for about 3 weeks now. He saw his primary care physician initially and was placed on doxycycline. He completed this course and he indicated he felt a little bit better after the antibiotic but then shortly thereafter started to worsen again at which time he was prescribed prednisone and albuterol as well as cough medicine with codeine in it. He was also given a diuretic. He indicated despite this he had worsening symptoms and had a follow-up with his primary care physician today. At that time he was noted to have an oxygen saturation of 85% on room air in the office so they sent him into the emergency department for further evaluation. Patient reports that he has had significant cough and now having sputum production. He indicated low-grade fevers at home and some mild nausea. He denies any chest pain, shortness of breath, orthopnea or PND. He has not had any abdominal pain, nausea, vomiting or diarrhea. Patient did indicate he had 1 previous episode of A-fib and takes flecainide for this but is not anticoagulated. 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 He does admit to a remote history of tobacco abuse but is not oxygen dependent at baseline. Vital signs on presentation showed a temperature of 99, respiratory rate was 25, blood pressure was 141/62 with oxygen saturations at 92% on 3 L nasal cannula. As noted he was 85% on room air as an outpatient. Tmax in the emergency department was 100 degrees. His CBC showed a normal white count at 11,000 however he did have a significant left shift with a 77.9% neutrophilia. His chemistry panel showed mild hypokalemia with potassium of 3.4 and an elevated BUN and creatinine at 23 and 1.35 respectively with a baseline of 0.75-1.1. His glucose was 113. Lactic acid was normal at 1.5. Troponin was 21 and BNP was 58.1. EKG showed normal sinus rhythm with a few PACs and left axis deviation consistent with pulmonary disease but no ST-T wave segments concerning for acute ischemia. Chest x-ray showed bilateral pulmonary infiltrates worse than previous assessment on 04/14/2024 and what appeared to be a left oral effusion however a left lateral decubitus performed and there is no layering. He was treated with gentle hydration, ceftriaxone and azithromycin in the emergency department and admission was requested. Hospital Course: 1. Bilateral pneumonia secondary to haemophilus influenza?83-year-old male presents to the hospital with shortness of breath and oxygen requirement, he was 85% on room air on admission. Currently down to 1 to 2 L nasal cannula. He was started initially on Levaquin as well as Solu-Medrol however the steroids were discontinued he was continued just on antibiotics. Today he was 3 L nasal cannula at rest and did not require any increased amount of oxygen with activity. I discussed with him the possibility for discharge today and he expressed understanding of the risk benefits of going home and would like to go home today. I did discuss with him that given the rapidity of his improvement that he could potentially not require oxygen on discharge if he stayed an extra day however he would prefer to go home today and today he does require oxygen. I have reviewed the oxygen testing, and this patient qualifies for the home equipment and portability. The patient is mobile in the home and the community. 2. Essential hypertension, hyperlipidemia, paroxysmal A-fib, hypothyroidism are chronic medical conditions which complicate his care. His home medications were continued where appropriate Physical Exam Narrative General: Alert, Oriented x3, Cooperative, No apparent distress HEENT: Atraumatic, PERRLA, EOMI, Normocephalic Oral: Moist Mucosa Neck: Supple, No JVD Lungs: Diminished, Normal air movement, No rhonchi, scattered wheeze, No rales Cardiovascular: Regular rate, Regular Rhythm, Normal S1, Normal S2, No murmurs Abdomen: Soft, Non Tender, Non-Distended, No Hepato-splenomegaly Extremities: Trace edema, Capillary Refill Less than 3 Seconds Skin: No rashes, No breakdown Musculoskeletal: No Tenderness to Palpation of Joints or Extremities Neurological: No focal neurological deficits, Motor Exam 5/5 strength throughout, Sensory exam intact to light touch and pain Psych/Mental Status: Normal Affect, Appropriate Weight / BMI Weight Weight: 254 lb 13.67 oz Body Mass Index (BMI) 40.9 ABG / Lab / Microbiology Data 04/28/24 07:01 04/28/24 07:01 Microbiology: Microbiology 04/27/24 15:20 Blood Culture (Wb) - Anticubital Right Blood Culture - Preliminary No growth in 48 hours. 04/27/24 15:20 Sputum, Expectorated/Coughed Gram Stain - Final 04/27/24 15:20 Sputum, Expectorated/Coughed Respiratory Culture - Final Haemophilus influenzae 04/27/24 22:10 Urine, Clean Catch Legionella Antigen - Final 04/27/24 22:10 Urine, Clean Catch Streptococcus pneumoniae Antigen (M - Final 04/27/24 19:20 Mucosa - Nasopharyngeal Respiratory Panel (PCR) - Final 04/27/24 19:20 Mucosa - Nasopharyngeal Coronavirus COVID-19 PCR - Final 04/27/24 16:42 Nasal Secretion SARS-CoV-2 Antigen (Rapid) - Final D/C Instructions Discharge Diet: Low fat / Low cholesterol Call your doctor if you observe: Fever of 101 or Higher, Shortness of breath, Dizziness, Fainting spells, Swelling in the ankles, Chest pain and Increased palpitations (irregular heartbeat) Meaningful Use Info Meaningful Use Meaningful Use Diagnoses (Choose all that apply): None applicable Ischemic Stroke Statin Dosing Therapy Reference: STATIN DOSE THERAPY REFERENCE: * Patients > 75 years receive moderate or high dose statin therapy. * Patients 75 years or YOUNGER should receive HIGH intensity statin dose unless contraindicated. You will be required to document reason for non-treatment if statin daily dose does not meet guidelines. HIGH DOSE STATIN THERAPY DAILY Atorvastatin > than or = to 40 mg Rosuvastatin > than or = to 20 mg Amlodipine + Atorvastatin > than or = to 2.5/40 mg Ezetimibe + Simvastatin 10/80 mg Simvastatin 80mg Discharge Plan Admission Admit Date/Time: 04/27/24 16:55 Attending Provider: Juliocesar Phelps Primary Care Provider: Martin Pruitt Consulting Providers: Socorro Baeza; Bill Crouch Discharge Orders/Prescriptions Prescriptions: New levofloxacin 750 mg tablet 750 mg PO DAILY Qty: 5 0RF Continued chlorthalidone 25 mg tablet 25 mg PO DAILY levothyroxine [Synthroid] 50 mcg tablet 50 mcg PO DAILY furosemide 20 mg tablet 20 mg PO DAILY metoprolol succinate 25 mg tablet extended release 24 hr 25 mg PO DAILY albuterol sulfate 90 mcg/actuation HFA aerosol inhaler 2 puff INHALATION 4X/DAY PRN PRN (Reason: cough) valsartan 160 mg tablet 160 mg PO DAILY atorvastatin 20 mg tablet 20 mg PO DAILY flecainide 50 mg tablet 50 mg PO BID codeine-guaifenesin 10-100 mg/5 mL liquid 10 ml PO 4X/DAY PRN PRN (Reason: cough) Referrals / Follow Up: Martin Pruitt MD [Primary Care Provider] - 05/12/24 11:00 am Disposition Disposition (needs filled in before D/C Order can be placed): Home, Self Care Charges/Coding Visit Charges Inpatient E&M: 50436 Disch Hosp >30min
--- NOTE | 2024-04-29 15:24 | PHA.DC_ITS ---
Pharmacy [facility] Pharm[facility] Service has performed discharge medication reconciliation and counseling for this patient. 1. LEVOFLOXACIN 750MG PO DAILY X 5 DAYS The patient's discharge medication list was reviewed for discrepancies and discrepancies were resolved. The patient was counseled on the following discharge medications and changes in medications for homegoing were reviewed. The Reason for Use, instructions for use, and potential side effects were reviewed for all new medications. The patient's questions regarding all of their medications were answered. The patient was able to verbally demonstrate an understanding of their discharge medications. Medications at Discharge Home Medications albuterol sulfate 90 mcg/actuation aerosol inhaler 2 puff inhalation 4X/DAY PRN PRN cough 04/27/24 atorvastatin 20 mg tablet 20 mg PO DAILY 04/27/24 chlorthalidone 25 mg tablet 25 mg PO DAILY 04/27/24 codeine 10 mg-guaifenesin 100 mg/5 mL oral liquid 10 ml PO 4X/DAY PRN PRN cough 04/27/24 flecainide 50 mg tablet 50 mg PO BID 04/27/24 furosemide 20 mg tablet 20 mg PO DAILY 04/27/24 levothyroxine 50 mcg tablet (Synthroid) 50 mcg PO DAILY 04/27/24 metoprolol succinate 25 mg tablet,extended release 24 hr 25 mg PO DAILY 04/27/24 valsartan 160 mg tablet 160 mg PO DAILY 04/27/24 levofloxacin 750 mg tablet 750 mg PO DAILY #5 tabs 04/29/24
--- NOTE | 2024-04-30 14:04 | CASEMGMT ---
Discharge Planning A list of?SNF providers including quality and resource use data and consistent with the patient's preferred geographic region, medical needs, and insurance network was created in [employer]Port Guide.? This list was provided to the SW. Angelita Choi Discharge Planning Asst.
== END 2024-04-29 15:50 | disposition home or self-care (01) | DRG 193 ==
LOC: ED 17:06 → MS3 17:08
PROVIDERS: Admitting Provider Internal Medicine; Emergency Provider Emergency Medicine; PCP Family Medicine; Visit Provider Family Medicine
DX: J14 Pneumonia due to Hemophilus influenzae (principal); J96.01 Acute respiratory failure with hypoxia; Z68.41 Body mass index [BMI] 40.0-44.9, adult; I48.0 Paroxysmal atrial fibrillation; E66.01 Morbid (severe) obesity due to excess calories; E03.9 Hypothyroidism, unspecified; E86.0 Dehydration; I10 Essential (primary) hypertension; E78.5 Hyperlipidemia, unspecified; G47.33 Obstructive sleep apnea (adult) (pediatric); E87.6 Hypokalemia; Z11.52 Encounter for screening for COVID-19; Z79.890 Hormone replacement therapy; Z79.899 Other long term (current) drug therapy; Z87.891 Personal history of nicotine dependence
CPT/HCPCS: 36415; 71046; 71275; 80048; 80053; 83605; 83735; 83880; 84100; 84484; 85025; 87040; 87070; 87077; 87205; 87449; 87633; 87635; 87641; 87811; 93005; 94640; 94668; 94762; 97162; 97530; 99252; 99285; J7030; J7050; J7120; Q9967; A4216; G0463

== ENCOUNTER → 2025-03-19 | Outpatient (CLI) | payer MEDICARE, OTHER, SELFPAY ==
[2025-03-19 12:23] LABS: Absolute Lymphocyte Count 1.57 X10^3/uL (0.83-4.51); Absolute Neutrophil Count 3.4 X10^3/uL (2.0-7.7); Basophil# 0.04 X10^3/uL; Basophil% 0.7 % (0-1); Eosinophil# 0.17 X10^3/uL; Hematocrit 36.5 % (40-54); Lymphocyte # 1.57 X10^3/ul (0.83-4.51); Lymphocyte % 27.7 % (19-41); Mean Corp Hgb Conc 32.9 g/dL (32-36); Mean Corpuscular Hgb 28.8 pg (27.0-32.0); Mean Corpuscular Volume 87.7 fL (80-94); Mean Platelet Vol. 11.7 fl (6.2-12.0); Monocyte# 0.46 X10^3/uL; Monocyte% 8.1 % (0-10); NRBC Flagged by Analyzer 0 % (0-5); Neutrophil # 3.39 X10^3/uL (2.7-7.7); Platelet Count 167 K/mm3 (150-450); RBC Distribution Width CV 13.2 % (11.6-14.6); RBC Distribution Width SD 42.1 fl (35.1-43.9); Red Blood Count 4.16 M/mm3 (4.6-6.2); White Blood Count 5.7 K/mm3 (4.4-11.0)
[2025-03-19 13:05] LABS: ALB/GLOB Ratio 1.5 RATIO (0.9-2.4); AST(SGOT) 23 U/L (<=37); Alanine Aminotransfer ALT/SGPT 15 U/L (<=46); Albumin, Serum 3.9 g/dL (3.4-4.8); Alkaline Phosphatase 83 U/L (40-129); Anion Gap 12 (5-15); BUN 17 mg/dL (4-19); BUN/Creat Ratio 15.6 RATIO (10-20); Calcium,Total 9.6 mg/dL (7.6-11.0); Carbon Dioxide 25.7 mmol/L (21.0-32.0); Chloride 102 mmol/L (98-108); Cholesterol 187 mg/dL (<=200); Creatinine, Serum 1.09 mg/dL (0.70-1.20); EST Glomerular Filtration Rate 68 (>60); Globulin 2.6 g/dL (2.2-4.2); Glucose 99 mg/dL (70-99); High Density Lipoprotein 38 mg/dL; Low Density Lipoprotein Calc. 126 mg/dL; Potassium 3.5 mmol/L (3.3-5.1); Pro- Brain NATRIURETIC PEPTIDE 211 pg/mL (<=1800); Protein, Total 6.4 g/dL (5.9-8.4); Sodium Level 140 mmol/L (133-145); Triglycerides 120 mg/dL; Very Low Density Lipoprotein 24 mg/dL (5-40); Vitamin B12 825 pg/mL (180-914); Vitamin D,25 Hydroxy 43.8 ng/mL (30-100); cholesterol:hdl ratio screen 4.99
== END | disposition home or self-care (01) ==
LOC: MFPLAB 09:52
PROVIDERS: PCP Family Medicine; Referring Provider Family Medicine; Visit Provider Family Medicine
DX: E03.9 Hypothyroidism, unspecified (principal); E55.9 Vitamin D deficiency, unspecified; R06.02 Shortness of breath; E53.8 Deficiency of other specified B group vitamins; E78.5 Hyperlipidemia, unspecified
CPT/HCPCS: 36415; 80053; 80061; 82306; 82607; 83880; 84443; 85025